=== PATIENT | female | born 1970 | race Caucasian/White ===

== ENCOUNTER 2016-10-12 10:26 | Emergency (ER) | payer MEDICARE ==
[2016-10-12] MEDS ORDERED: MORPHINE 4 MG/ML 1ML SYRINGE As Ordered ONE (10:50)
[2016-10-12] MEDS ORDERED: KETOROLAC 30 MG/ML VIAL (J1885) As Ordered ONE (10:50)
[2016-10-12] MEDS ORDERED: TRIMETHOBENZAMIDE HCL INJ 200 MG/2 ML VIAL (J3250) As Ordered ONE (10:53)
[2016-10-12 11:15] LABS: BASO % 0.3 % (0.0-1.0); EOS % 0.4 % (0.0-3.0); LARGE UNSTAINED CELL # 0.1 K/mm3 (0.0-0.4); LARGE UNSTAINED CELL % 0.4 % (0.0-4.0); LYMPH # 0.8 K/mm3 (1.5-4.5); LYMPH % 6.3 % (24.0-44.0); MEAN CORPUSCULAR HEMOGLOBIN 31.5 pg (27.0-33.0); MEAN CORPUSCULAR VOLUME 92.6 fl (80.0-96.0); MONO # 0.4 K/mm3 (0.0-0.8); MONO % 3.6 % (0.0-5.0); NEUTROPHILS # 10.9 K/mm3 (1.8-7.7); PLATELET COUNT, AUTOMATED 299 k/mm3 (150-450); RED CELL DISTRIBUTION WIDTH 12.8 % (11.5-14.5); WHITE BLOOD COUNT 12.3 K/mm3 (4.0-10.0)
[2016-10-12 11:26] LABS: ALBUMIN 3.6 GM/DL (3.2-5.2); ALBUMIN/GLOBULIN RATIO 0.86 (1.00-1.93); ALKALINE PHOSPHATASE 82 U/L (45-117); ALT/SGPT 15 U/L (12-78); ANION GAP 8 MEQ/L (8-16); AST/SGOT 10 U/L (15-37); BILIRUBIN,DIRECT 0.2 MG/DL (0.0-0.2); BILIRUBIN,TOTAL 0.9 MG/DL (0.2-1.0); BLOOD UREA NITROGEN 7 MG/DL (7-18); CALCIUM LEVEL 8.6 MG/DL (8.5-10.1); CARBON DIOXIDE LEVEL 26 MEQ/L (21-32); CHLORIDE LEVEL 104 MEQ/L (98-107); CREATININE FOR GFR 0.74 MG/DL (0.55-1.02); GLOMERULAR FILTRATION RATE > 60.0 (>58); GLUCOSE, FASTING 106 MG/DL (70-105); POTASSIUM SERUM 3.6 MEQ/L (3.5-5.1); SODIUM LEVEL 138 MEQ/L (136-145); TOTAL PROTEIN 7.8 GM/DL (6.4-8.2)
--- NOTE | 2016-10-12 11:37 | REP ---
CT abdomen pelvis without IV and oral contrast: There are no comparisons. There is no hydronephrosis or perinephric stranding on the right on the left. There are no renal, ureteral or bladder calculi on the right on the left. The visualized lung ocasio are unremarkable. The unenhanced hepatic parenchyma, gallbladder, pancreas and spleen are normal size and unremarkable. The adrenals are unremarkable. The abdominal aorta is unremarkable. There is no bowel distension. Mesentery is unremarkable. There is no ascites. Pelvis: The uterus and adnexa are unremarkable. There is no ascites or adenopathy. There is a phlebolith inferiorly on the left. There are occasional diverticula in the sigmoid colon, however there is no CT evidence of diverticulitis. Impression: There is no obstructive uropathy. There are occasional diverticula in the sigmoid colon without diverticulitis. There is no bowel distension or obstruction. There is no ascites. No adenopathy. Otherwise, negative CT of the abdomen and pelvis. Signed by Ahmet Calderon MD 10/12/2016 11:29 A
--- NOTE | 2016-10-12 11:54 | EDDOCDS ---
Physician Documentation [facility] Name: Alondra Hogan Age: 46 yrs Sex: Female : 1970 Arrival Date: 10/12/2016 Time: 10:26 Bed I5 / M5 Private MD: Giovanny Buitrago M. Disposition: 10/12/16 11:38 Discharged to Home/Self Care. Impression: Urinary tract infection, site not specified, Other abdominal pain - RIGHT FLANK PAIN, Nausea. - Condition is Stable. - Discharge Instructions: Nausea, Adult, Urinary Tract Infection. - Prescriptions for Tigan 300 mg Oral Capsule - take 1 capsule by ORAL route every 12 hours As needed; 20 capsule. Bactrim DS 800- 160 mg Oral Tablet - take 1 tablet by ORAL route every 12 hours for 7 days; 14 tablet. - Medication Reconciliation, Local Pharmacy Hours form. - Follow up: Emergency Department; When: As needed; Reason: Worsening of conditions. Follow up: Private Physician; When: 2 - 3 days; Reason: Wound/Symptom Recheck, Recheck today's complaints, Continuance of care. - Problem is new. - Symptoms have improved. Historical: - Allergies: Latex; - Home Meds: 1. citalopram 10 mg oral tab once daily 2. oxycodone-acetaminophen 7.5-325 mg Oral tab every 6 hours prn 3. clonidine HCl 0.2 mg Oral tab 1 tab once daily - PMHx: Bipolar disorder; Depression; - PSHx: ulnar nerve left arm; ; jaw surgery; - Social history: Smoking status: Patient uses tobacco products, current every day smoker. No barriers to communication noted, The patient speaks fluent Georgian, Speaks appropriately for age. - Family history: Not pertinent. - : The pt / caregiver states he / she is not on anticoagulants. Home medication list is obtained from the patient. - Exposure Risk Screening:: None identified. Vital Signs: 10/12 10:28 BP 111 / 74; Pulse 110; Resp 17; Temp 99.1(T); Pulse Ox 99% on R/A; Weight 61.23 kg / lr2 134.99 lbs (R); Height 5 ft. 0 in. (152.40 cm) (R); Pain 10/10; 11:49 BP 112 / 67 RA Sitting (auto/reg); Pulse 84; Resp 16; Temp 98.7(O); Pulse Ox 96% on jrd R/A; Pain 0/10; 10:28 Body Mass Index 26.37 (61.23 kg, 152.40 cm) lr2 MDM: 10:39 Financial registration complete. lg 10:43 [facility] Payment Agreement was scanned into [employer] and attached to record. lg 10:46 NS 0.9% 1000 ml IV at bolus once ordered. dt4 10:46 ketorolac 30 mg IVP once ordered. dt4 10:46 IV Saline Lock ordered. dt4 10:46 Undress patient appropriately for examination ordered. dt4 10:46 Tigan 200 mg IM once ordered. dt4 10:47 morphine 4 mg IVP once ordered. dt4 10:47 Basic Metabolic Profile Ordered. EDMS 10:47 CBC with Diff Ordered. EDMS 10:47 Liver Profile Ordered. EDMS 10:47 Urinalysis Ordered. EDMS 10:47 Urine Culture Ordered. EDMS 10:48 CT ABD & PELVIS: No Contrast Ordered. EDMS 10:48 NOTHING BY MOUTH+DIET ordered. EDMS Administered Medications: 11:01 Drug: NS 0.9% 1000 ml Route: IV; Rate: bolus; Site: right antecubital; jmk 11:03 Drug: Tigan 200 mg [Tigan 100 mg/mL intramuscular solution (2 mL)] Route: IM; Site: jo3 right gluteus; 11:03 Drug: morphine 4 mg [morphine 4 mg/mL intravenous cartridge (1 mL)] Route: IVP; Site: jo3 right antecubital; 11:04 Drug: ketorolac 30 mg [ketorolac 30 mg/mL (1 mL) injection solution (1 mL)] Route: IVP; jo3 Site: right antecubital; Signatures: Dispatcher [employer] EDMS Delio Rudolph RN RN jmk Michelson, Staci RN Rivas Boykin, Reg Reg lg Sharee Ponce PA-C PA-C dt4 Annmarie Menendez RN jo3 The chart was reviewed and I authenticate all verbal orders and agree with the evaluation and treatment provided.Attachments: 10:43 [facility] Payment Agreement lg MTDD
--- NOTE | 2016-10-12 11:54 | EDDOCDS ---
Nurse's Notes [facility] Name: Alondra Hogan Age: 46 yrs Sex: Female : 1970 Arrival Date: 10/12/2016 Time: 10:26 Bed I5 / M5 Private MD: Giovanny Buitrago M. Diagnosis: Urinary tract infection, site not specified;Other abdominal pain-RIGHT FLANK PAIN;Nausea Presentation: 10/12 10:29 Presenting complaint: Patient states: major pains on lower side back side for 2 days. srm nausea. no abnormal vaginal bleeding. inconsistency with urinating amount. Acute neurological deficits are not present. Mechanism of Injury: No Mechanism of Injury. Adult Sepsis Screening: The patient does not have new or worsening altered mentation. Patient's respiratory rate is less than 22. Systolic blood pressure is greater than 100. Patient has a qSOFA score of 0- Negative Sepsis Screen. Suicide/Homicide risk assessment- the patient denies having any suicidal and/or homicidal ideations and does not present with any other emotional, behavioral or mental health complaints. Status: Patient is not a technical service representative or dependent. Transition of care: patient was not received from another setting of care. 10:29 Method Of Arrival: Walkin/Carried/Asstd srm 10:29 Acuity: NEENA Level 3 srm Triage Assessment: 10:32 General: Appears uncomfortable. Pain: Pain currently is 10 out of 10 on a pain scale. srm Musculoskeletal: Reports right flnak pain. 10:32 Pt Declines HIV testing. srm Historical: - Allergies: Latex; - Home Meds: 1. citalopram 10 mg oral tab once daily 2. oxycodone-acetaminophen 7.5-325 mg Oral tab every 6 hours prn 3. clonidine HCl 0.2 mg Oral tab 1 tab once daily - PMHx: Bipolar disorder; Depression; - PSHx: ulnar nerve left arm; ; jaw surgery; - Social history: Smoking status: Patient uses tobacco products, current every day smoker. No barriers to communication noted, The patient speaks fluent Irish, Speaks appropriately for age. - Family history: Not pertinent. - : The pt / caregiver states he / she is not on anticoagulants. Home medication list is obtained from the patient. - Exposure Risk Screening:: None identified. Screenin:02 Screening information is obtained from the patient. Fall risk: No risks identified. jmk Assistance ADL's: requires no assistance with activities of daily living. Abuse/DV Screen: The patient / caregiver reports he/she is: not in a situation that causes fear, pain or injury. Nutritional screening: No deficits noted. Advance Directives: Currently, there is no health care proxy. There is no active DNR order. There is no living will. There is no Power of Director Mobile. Advance directive information has not previously been placed in an [facility] medical record. home support is adequate. Assessment: 11:02 General: Appears dramatic presentation. skin warm and dry / moist pink oral mucosa. jmk indicates flank discomfort that increases with movement . skin is unremarkable. Abd soft and non tender with palpation. Cardiovascular: Capillary refill < 3 seconds Clubbing of nail beds is absent Heart tones S1 S2 present. Respiratory: No deficits noted. Airway is patent Respiratory effort is even, unlabored, Respiratory pattern is regular, Breath sounds are clear bilaterally. GI: Abdomen is obese, Bowel sounds present X 4 quads. 11:36 Reassessment: Patient appears in no apparent distress at this time. Patient denies pain jo3 at this time. Patient states feeling better. Patient states symptoms have improved. awaiting results at this time. aware of plan of care . 11:51 General: Appears states pain resolved and no longer nauseated. [facility] Vital Signs: 10:28 BP 111 / 74; Pulse 110; Resp 17; Temp 99.1(T); Pulse Ox 99% on R/A; Weight 61.23 kg lr2 (R); Height 5 ft. 0 in. (152.40 cm) (R); Pain 10/10; 11:49 BP 112 / 67 RA Sitting (auto/reg); Pulse 84; Resp 16; Temp 98.7(O); Pulse Ox 96% on jrd R/A; Pain 0/10; 10:28 Body Mass Index 26.37 (61.23 kg, 152.40 cm) lr2 Vitals: 10:28 Log In Time: October 12, 2016 at 10:26. lr2 ED Course: 10:27 Patient visited by Nkechi Portillo. lr2 10:27 Giovanny Buitrago is Private Physician. lr2 10:27 Patient moved to Waiting lr2 10:27 Patient moved to Pre RCE lr2 10:30 Triage Initiated srm 10:32 Patient moved to Triage 3 srm 10:33 Bhaskar Grover PA is PHCP. btw 10:33 Damaris Phillips MD is Attending Physician. btw 10:33 PHCP role handed off by Bhaskar Grover PA dt4 10:33 Sharee Ponce PA-C is PHCP. dt4 10:33 Patient visited by Sharee Ponce PA-C. dt4 10:43 Patient moved to I4 / M4 srm 10:43 [facility] Payment Agreement was scanned into [employer] and attached to record. lg 10:46 Patient moved to I5 / M5 jrd 11:01 Basic Metabolic Profile Sent. jmk 11:01 CBC with Diff Sent. jmk 11:01 Liver Profile Sent. jmk 11:01 Urinalysis Sent. jmk 11:01 Urine Culture Sent. jmk 11:02 The patient / caregiver is instructed regarding the plan of care and ED course. jmk 11:02 Inserted saline lock: 20 gauge in right antecubital area. jmk 11:06 Patient visited by Delio Rudolph,RN. jmk 11:37 Patient visited by Annmarie Menendez,JACQUES. jo3 11:46 CT ABD & PELVIS: No Contrast Returned. EDMS 11:50 Patient visited by Jame Easley PCA. jrd 11:51 Discontinued lock intact, bleeding controlled, pressure dressing applied, No jmk redness/swelling at site. No procedures done that require assistance. Administered Medications: 11:01 Drug: NS 0.9% 1000 ml Route: IV; Rate: bolus; Site: right antecubital; jmk 11:03 Drug: Tigan 200 mg [Tigan 100 mg/mL intramuscular solution (2 mL)] Route: IM; Site: jo3 right gluteus; 11:03 Drug: morphine 4 mg [morphine 4 mg/mL intravenous cartridge (1 mL)] Route: IVP; Site: jo3 right antecubital; 11:04 Drug: ketorolac 30 mg [ketorolac 30 mg/mL (1 mL) injection solution (1 mL)] Route: IVP; jo3 Site: right antecubital; Order Results: Lab Order: Basic Metabolic Profile; SPEC'M 10/12/16 10:52 Test: GLUCOSE, FASTING; Value: 106; Range: 70-105; Abnormal: Above high normal; Units: MG/DL; Status: F Test: BLOOD UREA NITROGEN; Value: 7; Range: 7-18; Units: MG/DL; Status: F Test: CREATININE FOR GFR; Value: 0.74; Range: 0.55-1.02; Units: MG/DL; Status: F Test: GLOMERULAR FILTRATION RATE; Value: > 60.0; Range: >58; Status: F Test: SODIUM LEVEL; Value: 138; Range: 136-145; Units: MEQ/L; Status: F Test: POTASSIUM SERUM; Value: 3.6; Range: 3.5-5.1; Units: MEQ/L; Status: F Test: CHLORIDE LEVEL; Value: 104; Range: 98-107; Units: MEQ/L; Status: F Test: CARBON DIOXIDE LEVEL; Value: 26; Range: 21-32; Units: MEQ/L; Status: F Test: ANION GAP; Value: 8; Range: 8-16; Units: MEQ/L; Status: F Test: CALCIUM LEVEL; Value: 8.6; Range: 8.5-10.1; Units: MG/DL; Status: F Test Note: ; Units are mL/min/1.73 m2 Chronic Kidney Disease Staging per NKF: Stage I & II GFR >=60 Normal to Mildly Decreased Stage III GFR 30-59 Moderately Decreased Stage IV GFR 15-29 Severely Decreased Stage V GFR <15 Very Little GFR Left ESRD GFR <15 on [employer] OVERHAUL Lab Order: CBC with Diff; SPEC'M 10/12/16 10:52 Test: WHITE BLOOD COUNT; Value: 12.3; Range: 4.0-10.0; Abnormal: Above high normal; Units: K/mm3; Status: F Test: RED BLOOD COUNT; Value: 4.46; Range: 4.00-5.40; Units: M/mm3; Status: F Test: HEMOGLOBIN; Value: 14.1; Range: 12.0-16.0; Units: g/dl; Status: F Test: HEMATOCRIT; Value: 41.4; Range: 36.0-47.0; Units: %; Status: F Test: MEAN CORPUSCULAR VOLUME; Value: 92.6; Range: 80.0-96.0; Units: fl; Status: F Test: MEAN CORPUSCULAR HEMOGLOBIN; Value: 31.5; Range: 27.0-33.0; Units: pg; Status: F Test: MEAN CORPUSCULAR HGB CONC; Value: 34.0; Range: 32.0-36.5; Units: g/dl; Status: F Test: RED CELL DISTRIBUTION WIDTH; Value: 12.8; Range: 11.5-14.5; Units: %; Status: F Test: PLATELET COUNT, AUTOMATED; Value: 299; Range: 150-450; Units: k/mm3; Status: F Test: NEUTROPHILS %; Value: 89.0; Range: 36.0-66.0; Abnormal: Above high normal; Units: %; Status: F Test: LYMPH %; Value: 6.3; Range: 24.0-44.0; Abnormal: Below low normal; Units: %; Status: F Test: MONO %; Value: 3.6; Range: 0.0-5.0; Units: %; Status: F Test: EOS %; Value: 0.4; Range: 0.0-3.0; Units: %; Status: F Test: BASO %; Value: 0.3; Range: 0.0-1.0; Units: %; Status: F Test: LARGE UNSTAINED CELL %; Value: 0.4; Range: 0.0-4.0; Units: %; Status: F Test: NEUTROPHILS #; Value: 10.9; Range: 1.8-7.7; Abnormal: Above high normal; Units: K/mm3; Status: F Test: LYMPH #; Value: 0.8; Range: 1.5-4.5; Abnormal: Below low normal; Units: K/mm3; Status: F Test: MONO #; Value: 0.4; Range: 0.0-0.8; Units: K/mm3; Status: F Test: EOS #; Value: 0.0; Range: 0.0-0.50; Units: K/mm3; Status: F Test: BASO #; Value: 0.0; Range: 0.0-0.2; Units: K/mm3; Status: F Test: LARGE UNSTAINED CELL #; Value: 0.1; Range: 0.0-0.4; Units: K/mm3; Status: F Lab Order: Liver Profile; SPEC'M 10/12/16 10:52 Test: AST/SGOT; Value: 10; Range: 15-37; Abnormal: Below low normal; Units: U/L; Status: F Test: ALT/SGPT; Value: 15; Range: 12-78; Units: U/L; Status: F Test: ALKALINE PHOSPHATASE; Value: 82; Range: 45-117; Units: U/L; Status: F Test: BILIRUBIN,TOTAL; Value: 0.9; Range: 0.2-1.0; Units: MG/DL; Status: F Test: BILIRUBIN,DIRECT; Value: 0.2; Range: 0.0-0.2; Units: MG/DL; Status: F Test: TOTAL PROTEIN; Value: 7.8; Range: 6.4-8.2; Units: GM/DL; Status: F Test: ALBUMIN; Value: 3.6; Range: 3.2-5.2; Units: GM/DL; Status: F Test: ALBUMIN/GLOBULIN RATIO; Value: 0.86; Range: 1.00-1.93; Abnormal: Below low normal; Status: F Lab Order: Urinalysis; SPEC'M 10/12/16 10:52 Test: APPEARANCE, URINE; Value: CLOUDY; Range: CLEAR; Abnormal: Above high normal; Status: F Test: COLOR, URINE; Value: YELLOW; Range: YELLOW; Status: F Test: PH,URINE; Value: 6.0; Range: 5.0-9.0; Units: UNITS; Status: F Test: SPECIFIC GRAVITY URINE AUTO; Value: 1.011; Range: 1.002-1.035; Status: F Test: PROTEIN, URINE AUTO; Value: 1+; Range: NEGATIVE; Abnormal: Above high normal; Units: mg/dL; Status: F Test: GLUCOSE, URINE (UA) AUTO; Value: NEGATIVE; Range: NEGATIVE; Units: mg/dL; Status: F Test: KETONE, URINE AUTO; Value: NEGATIVE; Range: NEGATIVE; Units: mg/dL; Status: F Test: UROBILINOGEN, URINE AUTO; Value: 4.0; Range: 0.0-2.0; Abnormal: Above high normal; Units: mg/dL; Status: F Test: BILIRUBIN, URINE AUTO; Value: NEGATIVE; Range: NEGATIVE; Status: F Test: NITRITE, URINE AUTO; Value: POSITIVE; Range: NEGATIVE; Status: F Test: LEUKOCYTE ESTERASE, URINE AUTO; Value: 3+; Range: NEGATIVE; Abnormal: Above high normal; Status: F Test: BLOOD, URINE BLOOD; Value: 2+; Range: NEGATIVE; Abnormal: Above high normal; Status: F Test: WBC, URINE AUTO; Value: TNTC; Range: 0-3; Abnormal: Above high normal; Units: /HPF; Status: F Test: RBC, URINE AUTO; Value: 19; Range: 0-3; Abnormal: Above high normal; Units: /HPF; Status: F Test: BACTERIA, URINE AUTO; Value: 1+; Range: NEGATIVE; Abnormal: Above high normal; Status: F Test: SQUAMOUS EPITHELIAL CELL UR AU; Value: 2; Range: 0-6; Units: /HPF; Status: F Test: MUCUS, URINE; Value: SMALL; Range: NEGATIVE; Status: F Test: HYALINE CAST, URINE AUTO; Value: 0; Range: 0-1; Units: /LPF; Status: F Radiology Order: CT ABD & PELVIS: No Contrast Test: CT ABD & PELVIS: No Contrast REASON FOR EXAMINATION: RIGHT FLANK PAIN; CT abdomen pelvis without IV and oral contrast:; ; There are no comparisons.; ; There is no hydronephrosis or perinephric stranding on the right on the left.; There are no renal, ureteral or bladder calculi on the right on the left.; ; The visualized lung ocasio are unremarkable.; ; The unenhanced hepatic parenchyma, gallbladder, pancreas and spleen are normal; size and unremarkable. The adrenals are unremarkable.; ; The abdominal aorta is unremarkable.; ; There is no bowel distension. Mesentery is unremarkable. There is no ascites.; ; Pelvis:; ; The uterus and adnexa are unremarkable. There is no ascites or adenopathy.; There is a phlebolith inferiorly on the left.; ; There are occasional diverticula in the sigmoid colon, however there is no CT; evidence of diverticulitis.; ; Impression:; ; There is no obstructive uropathy. There are occasional diverticula in the; sigmoid colon without diverticulitis. There is no bowel distension or; obstruction. There is no ascites. No adenopathy. Otherwise, negative CT of the; abdomen and pelvis.; ; ; Signed by; Ahmet Calderon MD 10/12/2016 11:29 A; Outcome: 11:38 Discharge ordered by Provider. dt4 11:51 Discharge Assessment: Patient awake, alert and oriented x 3. No cognitive and/or jmk functional deficits noted. Patient verbalized understanding of disposition instructions. patient administered narcotics - no. The following High Risk Discharge criteria are identified: None. Discharged to home ambulatory. Condition: good. Discharge instructions given to patient, Instructed on discharge instructions, follow up and referral plans. medication usage, Demonstrated understanding of instructions, medications, Pt was receptive of discharge instructions/ teaching. Prescriptions given X 2. CT Study completed. Property :Personal belongings accompany Pt. 11:53 Patient left the ED. shabana Signatures: Dispatcher [employer] EDMS Delio Rudolph,RN Demetra Lozano RN Rivas Boykin, Annmarie Paul lg, RN RN jo3 Wolfenden, Brandon, PA PA btw Tschudi, Diane, PA-C PAVincenzo dt4 Jame Easley, BILLY RELAY REPAIRER Nkechi Da Silva2 LYNDA
--- NOTE | 2016-10-14 12:54 | EDDOCDS ---
Nurse's Notes [facility] Name: Alondra Hogan Age: 46 yrs Sex: Female : 1970 Arrival Date: 10/12/2016 Time: 10:26 Bed I5 / M5 Private MD: Giovanny Buitrago M. Diagnosis: Urinary tract infection, site not specified;Other abdominal pain-RIGHT FLANK PAIN;Nausea Presentation: 10/12 10:29 Presenting complaint: Patient states: major pains on lower side back side for 2 days. srm nausea. no abnormal vaginal bleeding. inconsistency with urinating amount. Acute neurological deficits are not present. Mechanism of Injury: No Mechanism of Injury. Adult Sepsis Screening: The patient does not have new or worsening altered mentation. Patient's respiratory rate is less than 22. Systolic blood pressure is greater than 100. Patient has a qSOFA score of 0- Negative Sepsis Screen. Suicide/Homicide risk assessment- the patient denies having any suicidal and/or homicidal ideations and does not present with any other emotional, behavioral or mental health complaints. Status: Patient is not a janitorial services supervisor or dependent. Transition of care: patient was not received from another setting of care. 10:29 Method Of Arrival: Walkin/Carried/Asstd srm 10:29 Acuity: NEENA Level 3 srm Triage Assessment: 10:32 General: Appears uncomfortable. Pain: Pain currently is 10 out of 10 on a pain scale. srm Musculoskeletal: Reports right flnak pain. 10:32 Pt Declines HIV testing. srm Historical: - Allergies: Latex; - Home Meds: 1. citalopram 10 mg oral tab once daily 2. oxycodone-acetaminophen 7.5-325 mg Oral tab every 6 hours prn 3. clonidine HCl 0.2 mg Oral tab 1 tab once daily - PMHx: Bipolar disorder; Depression; - PSHx: ulnar nerve left arm; ; jaw surgery; - Social history: Smoking status: Patient uses tobacco products, current every day smoker. No barriers to communication noted, The patient speaks fluent Mongolian, Speaks appropriately for age. - Family history: Not pertinent. - : The pt / caregiver states he / she is not on anticoagulants. Home medication list is obtained from the patient. - Exposure Risk Screening:: None identified. Screenin:02 Screening information is obtained from the patient. Fall risk: No risks identified. jmk Assistance ADL's: requires no assistance with activities of daily living. Abuse/DV Screen: The patient / caregiver reports he/she is: not in a situation that causes fear, pain or injury. Nutritional screening: No deficits noted. Advance Directives: Currently, there is no health care proxy. There is no active DNR order. There is no living will. There is no Power of Bone Cooking Operator. Advance directive information has not previously been placed in an [facility] medical record. home support is adequate. Assessment: 11:02 General: Appears dramatic presentation. skin warm and dry / moist pink oral mucosa. jmk indicates flank discomfort that increases with movement . skin is unremarkable. Abd soft and non tender with palpation. Cardiovascular: Capillary refill < 3 seconds Clubbing of nail beds is absent Heart tones S1 S2 present. Respiratory: No deficits noted. Airway is patent Respiratory effort is even, unlabored, Respiratory pattern is regular, Breath sounds are clear bilaterally. GI: Abdomen is obese, Bowel sounds present X 4 quads. 11:36 Reassessment: Patient appears in no apparent distress at this time. Patient denies pain jo3 at this time. Patient states feeling better. Patient states symptoms have improved. awaiting results at this time. aware of plan of care . 11:51 General: Appears states pain resolved and no longer nauseated. [facility] Vital Signs: 10:28 BP 111 / 74; Pulse 110; Resp 17; Temp 99.1(T); Pulse Ox 99% on R/A; Weight 61.23 kg lr2 (R); Height 5 ft. 0 in. (152.40 cm) (R); Pain 10/10; 11:49 BP 112 / 67 RA Sitting (auto/reg); Pulse 84; Resp 16; Temp 98.7(O); Pulse Ox 96% on jrd R/A; Pain 0/10; 10:28 Body Mass Index 26.37 (61.23 kg, 152.40 cm) lr2 Vitals: 10:28 Log In Time: October 12, 2016 at 10:26. lr2 ED Course: 10:27 Patient visited by Nkechi Portillo. lr2 10:27 Giovanny Buitrago is Private Physician. lr2 10:27 Patient moved to Waiting lr2 10:27 Patient moved to Pre RCE lr2 10:30 Triage Initiated srm 10:32 Patient moved to Triage 3 srm 10:33 Bhaskar Grover PA is PHCP. btw 10:33 Damaris Phillips MD is Attending Physician. btw 10:33 PHCP role handed off by Bhaskar Grover PA dt4 10:33 Sharee Ponce PA-C is PHCP. dt4 10:33 Patient visited by Sharee Ponce PA-C. dt4 10:43 Patient moved to I4 / M4 srm 10:43 [facility] Payment Agreement was scanned into Widespace and attached to record. lg 10:46 Patient moved to I5 / M5 jrd 11:01 Basic Metabolic Profile Sent. jmk 11:01 CBC with Diff Sent. jmk 11:01 Liver Profile Sent. jmk 11:01 Urinalysis Sent. jmk 11:01 Urine Culture Sent. jmk 11:02 The patient / caregiver is instructed regarding the plan of care and ED course. jmk 11:02 Inserted saline lock: 20 gauge in right antecubital area. jmk 11:06 Patient visited by Delio Rudolph,RN. jmk 11:37 Patient visited by Annmarie Menendez,JACQUES. jo3 11:46 CT ABD & PELVIS: No Contrast Returned. EDMS 11:50 Patient visited by Jame Easley PCA. jrd 11:51 Discontinued lock intact, bleeding controlled, pressure dressing applied, No jmk redness/swelling at site. No procedures done that require assistance. 15:26 T-Sheet-- Draft Copy was scanned into Widespace and attached to record. gb 15:26 Radiology Report was scanned into Widespace and attached to record. gb Administered Medications: 11:01 Drug: NS 0.9% 1000 ml Route: IV; Rate: bolus; Site: right antecubital; jmk 11:03 Drug: Tigan 200 mg [Tigan 100 mg/mL intramuscular solution (2 mL)] Route: IM; Site: jo3 right gluteus; 11:03 Drug: morphine 4 mg [morphine 4 mg/mL intravenous cartridge (1 mL)] Route: IVP; Site: jo3 right antecubital; 11:04 Drug: ketorolac 30 mg [ketorolac 30 mg/mL (1 mL) injection solution (1 mL)] Route: IVP; jo3 Site: right antecubital; Order Results: Lab Order: Basic Metabolic Profile; SPEC'M 10/12/16 10:52 Test: GLUCOSE, FASTING; Value: 106; Range: 70-105; Abnormal: Above high normal; Units: MG/DL; Status: F Test: BLOOD UREA NITROGEN; Value: 7; Range: 7-18; Units: MG/DL; Status: F Test: CREATININE FOR GFR; Value: 0.74; Range: 0.55-1.02; Units: MG/DL; Status: F Test: GLOMERULAR FILTRATION RATE; Value: > 60.0; Range: >58; Status: F Test: SODIUM LEVEL; Value: 138; Range: 136-145; Units: MEQ/L; Status: F Test: POTASSIUM SERUM; Value: 3.6; Range: 3.5-5.1; Units: MEQ/L; Status: F Test: CHLORIDE LEVEL; Value: 104; Range: 98-107; Units: MEQ/L; Status: F Test: CARBON DIOXIDE LEVEL; Value: 26; Range: 21-32; Units: MEQ/L; Status: F Test: ANION GAP; Value: 8; Range: 8-16; Units: MEQ/L; Status: F Test: CALCIUM LEVEL; Value: 8.6; Range: 8.5-10.1; Units: MG/DL; Status: F Test Note: ; Units are mL/min/1.73 m2 Chronic Kidney Disease Staging per NKF: Stage I & II GFR >=60 Normal to Mildly Decreased Stage III GFR 30-59 Moderately Decreased Stage IV GFR 15-29 Severely Decreased Stage V GFR <15 Very Little GFR Left ESRD GFR <15 on COACH DRIVER Lab Order: CBC with Diff; SPEC'M 10/12/16 10:52 Test: WHITE BLOOD COUNT; Value: 12.3; Range: 4.0-10.0; Abnormal: Above high normal; Units: K/mm3; Status: F Test: RED BLOOD COUNT; Value: 4.46; Range: 4.00-5.40; Units: M/mm3; Status: F Test: HEMOGLOBIN; Value: 14.1; Range: 12.0-16.0; Units: g/dl; Status: F Test: HEMATOCRIT; Value: 41.4; Range: 36.0-47.0; Units: %; Status: F Test: MEAN CORPUSCULAR VOLUME; Value: 92.6; Range: 80.0-96.0; Units: fl; Status: F Test: MEAN CORPUSCULAR HEMOGLOBIN; Value: 31.5; Range: 27.0-33.0; Units: pg; Status: F Test: MEAN CORPUSCULAR HGB CONC; Value: 34.0; Range: 32.0-36.5; Units: g/dl; Status: F Test: RED CELL DISTRIBUTION WIDTH; Value: 12.8; Range: 11.5-14.5; Units: %; Status: F Test: PLATELET COUNT, AUTOMATED; Value: 299; Range: 150-450; Units: k/mm3; Status: F Test: NEUTROPHILS %; Value: 89.0; Range: 36.0-66.0; Abnormal: Above high normal; Units: %; Status: F Test: LYMPH %; Value: 6.3; Range: 24.0-44.0; Abnormal: Below low normal; Units: %; Status: F Test: MONO %; Value: 3.6; Range: 0.0-5.0; Units: %; Status: F Test: EOS %; Value: 0.4; Range: 0.0-3.0; Units: %; Status: F Test: BASO %; Value: 0.3; Range: 0.0-1.0; Units: %; Status: F Test: LARGE UNSTAINED CELL %; Value: 0.4; Range: 0.0-4.0; Units: %; Status: F Test: NEUTROPHILS #; Value: 10.9; Range: 1.8-7.7; Abnormal: Above high normal; Units: K/mm3; Status: F Test: LYMPH #; Value: 0.8; Range: 1.5-4.5; Abnormal: Below low normal; Units: K/mm3; Status: F Test: MONO #; Value: 0.4; Range: 0.0-0.8; Units: K/mm3; Status: F Test: EOS #; Value: 0.0; Range: 0.0-0.50; Units: K/mm3; Status: F Test: BASO #; Value: 0.0; Range: 0.0-0.2; Units: K/mm3; Status: F Test: LARGE UNSTAINED CELL #; Value: 0.1; Range: 0.0-0.4; Units: K/mm3; Status: F Lab Order: Liver Profile; SPEC'M 10/12/16 10:52 Test: AST/SGOT; Value: 10; Range: 15-37; Abnormal: Below low normal; Units: U/L; Status: F Test: ALT/SGPT; Value: 15; Range: 12-78; Units: U/L; Status: F Test: ALKALINE PHOSPHATASE; Value: 82; Range: 45-117; Units: U/L; Status: F Test: BILIRUBIN,TOTAL; Value: 0.9; Range: 0.2-1.0; Units: MG/DL; Status: F Test: BILIRUBIN,DIRECT; Value: 0.2; Range: 0.0-0.2; Units: MG/DL; Status: F Test: TOTAL PROTEIN; Value: 7.8; Range: 6.4-8.2; Units: GM/DL; Status: F Test: ALBUMIN; Value: 3.6; Range: 3.2-5.2; Units: GM/DL; Status: F Test: ALBUMIN/GLOBULIN RATIO; Value: 0.86; Range: 1.00-1.93; Abnormal: Below low normal; Status: F Lab Order: Urinalysis; SPEC'M 10/12/16 10:52 Test: APPEARANCE, URINE; Value: CLOUDY; Range: CLEAR; Abnormal: Above high normal; Status: F Test: COLOR, URINE; Value: YELLOW; Range: YELLOW; Status: F Test: PH,URINE; Value: 6.0; Range: 5.0-9.0; Units: UNITS; Status: F Test: SPECIFIC GRAVITY URINE AUTO; Value: 1.011; Range: 1.002-1.035; Status: F Test: PROTEIN, URINE AUTO; Value: 1+; Range: NEGATIVE; Abnormal: Above high normal; Units: mg/dL; Status: F Test: GLUCOSE, URINE (UA) AUTO; Value: NEGATIVE; Range: NEGATIVE; Units: mg/dL; Status: F Test: KETONE, URINE AUTO; Value: NEGATIVE; Range: NEGATIVE; Units: mg/dL; Status: F Test: UROBILINOGEN, URINE AUTO; Value: 4.0; Range: 0.0-2.0; Abnormal: Above high normal; Units: mg/dL; Status: F Test: BILIRUBIN, URINE AUTO; Value: NEGATIVE; Range: NEGATIVE; Status: F Test: NITRITE, URINE AUTO; Value: POSITIVE; Range: NEGATIVE; Status: F Test: LEUKOCYTE ESTERASE, URINE AUTO; Value: 3+; Range: NEGATIVE; Abnormal: Above high normal; Status: F Test: BLOOD, URINE BLOOD; Value: 2+; Range: NEGATIVE; Abnormal: Above high normal; Status: F Test: WBC, URINE AUTO; Value: TNTC; Range: 0-3; Abnormal: Above high normal; Units: /HPF; Status: F Test: RBC, URINE AUTO; Value: 19; Range: 0-3; Abnormal: Above high normal; Units: /HPF; Status: F Test: BACTERIA, URINE AUTO; Value: 1+; Range: NEGATIVE; Abnormal: Above high normal; Status: F Test: SQUAMOUS EPITHELIAL CELL UR AU; Value: 2; Range: 0-6; Units: /HPF; Status: F Test: MUCUS, URINE; Value: SMALL; Range: NEGATIVE; Status: F Test: HYALINE CAST, URINE AUTO; Value: 0; Range: 0-1; Units: /LPF; Status: F Lab Order: Urine Culture; SPEC'M 10/12/16 10:52 Test: URINE CULTURE; Value: <EXTERNAL COMMENT eCWMed> FULL REPORT IN LAB NOTES (eCW and Medent).; Status: F Test: URINE CULTURE; Value: ORGANISM 1: ESCHERICHIA COLI; Status: F Test: URINE CULTURE; Value: ESCHERICHIA COLI; Status: F Test: URINE CULTURE; Value: COLONY COUNT CFU/ml >100,000; Status: F Test: URINE CULTURE; Value: GRAM NEG SENSI - VITEK 80; Status: F Test: URINE CULTURE; Value: Method: VIT2; Status: F Test: URINE CULTURE; Value: EXTD BRD SPCTRM BETA LACTAMASE -; Status: F Test: URINE CULTURE; Value: TRIMETHOPRIM/SULFAMETHOXAZOLE <=20 S; Status: F Test: URINE CULTURE; Value: AMPICILLIN 4 S; Status: F Test: URINE CULTURE; Value: GENTAMICIN <=1 S; Status: F Test: URINE CULTURE; Value: NITROFURANTOIN <=16 S; Status: F Test: URINE CULTURE; Value: CEFAZOLIN <=4 S; Status: F Test: URINE CULTURE; Value: LEVOFLOXACIN <=0.12 S; Status: F Test: URINE CULTURE; Value: TOBRAMYCIN <=1 S; Status: F Test: URINE CULTURE; Value: CEFTRIAXONE <=1 S; Status: F Test: URINE CULTURE; Value: CEFTAZIDIME <=1 S; Status: F Test: URINE CULTURE; Value: AMPICILLIN/SULBACTAM 4 S; Status: F Test: URINE CULTURE; Value: PIPERACILLIN/TAZOBACTAM <=4 S; Status: F Test: URINE CULTURE; Value: AZTREONAM <=1 S; Status: F Test: URINE CULTURE; Value: ERTAPENEM <=0.5 S; Status: F Test: URINE CULTURE; Value: MEROPENEM <=0.25 S; Status: F Test: URINE CULTURE; Value: TIGECYCLINE <=0.5 S; Status: F Test: URINE CULTURE; Value: CEFEPIME <=1 S; Status: F Radiology Order: CT ABD & PELVIS: No Contrast Test: CT ABD & PELVIS: No Contrast REASON FOR EXAMINATION: RIGHT FLANK PAIN; CT abdomen pelvis without IV and oral contrast:; ; There are no comparisons.; ; There is no hydronephrosis or perinephric stranding on the right on the left.; There are no renal, ureteral or bladder calculi on the right on the left.; ; The visualized lung ocasio are unremarkable.; ; The unenhanced hepatic parenchyma, gallbladder, pancreas and spleen are normal; size and unremarkable. The adrenals are unremarkable.; ; The abdominal aorta is unremarkable.; ; There is no bowel distension. Mesentery is unremarkable. There is no ascites.; ; Pelvis:; ; The uterus and adnexa are unremarkable. There is no ascites or adenopathy.; There is a phlebolith inferiorly on the left.; ; There are occasional diverticula in the sigmoid colon, however there is no CT; evidence of diverticulitis.; ; Impression:; ; There is no obstructive uropathy. There are occasional diverticula in the; sigmoid colon without diverticulitis. There is no bowel distension or; obstruction. There is no ascites. No adenopathy. Otherwise, negative CT of the; abdomen and pelvis.; ; ; Signed by; Ahmet Calderon MD 10/12/2016 11:29 A; Outcome: 11:38 Discharge ordered by Provider. dt4 11:51 Discharge Assessment: Patient awake, alert and oriented x 3. No cognitive and/or jmk functional deficits noted. Patient verbalized understanding of disposition instructions. patient administered narcotics - no. The following High Risk Discharge criteria are identified: None. Discharged to home ambulatory. Condition: good. Discharge instructions given to patient, Instructed on discharge instructions, follow up and referral plans. medication usage, Demonstrated understanding of instructions, medications, Pt was receptive of discharge instructions/ teaching. Prescriptions given X 2. CT Study completed. Property :Personal belongings accompany Pt. 11:53 Patient left the ED. sahbana Signatures: Dispatcher MedHost EDMS Delio Rudolph,RN Demetra Lozano, JACQUES RN Angeles Altman, Reg Reg gb Rivas Werner, Reg Reg lg Annmarie MenendezRN RN Bhaskar Dubose PA PA btw Tschudi, Diane, PA-C PA-C dt4 Jame Easley, BILLY MANAGER BENCH Nkechi Da Silva2 Chart Complete LYNDA
--- NOTE | 2016-10-14 12:54 | EDDOCDS ---
Physician Documentation [facility] Name: Alondra Hogan Age: 46 yrs Sex: Female : 1970 Arrival Date: 10/12/2016 Time: 10:26 Bed I5 / M5 Private MD: Giovanny Buitrago M. Disposition: 10/12/16 11:38 Discharged to Home/Self Care. Impression: Urinary tract infection, site not specified, Other abdominal pain - RIGHT FLANK PAIN, Nausea. - Condition is Stable. - Discharge Instructions: Nausea, Adult, Urinary Tract Infection. - Prescriptions for Tigan 300 mg Oral Capsule - take 1 capsule by ORAL route every 12 hours As needed; 20 capsule. Bactrim DS 800- 160 mg Oral Tablet - take 1 tablet by ORAL route every 12 hours for 7 days; 14 tablet. - Medication Reconciliation, Local Pharmacy Hours form. - Follow up: Emergency Department; When: As needed; Reason: Worsening of conditions. Follow up: Private Physician; When: 2 - 3 days; Reason: Wound/Symptom Recheck, Recheck today's complaints, Continuance of care. - Problem is new. - Symptoms have improved. Historical: - Allergies: Latex; - Home Meds: 1. citalopram 10 mg oral tab once daily 2. oxycodone-acetaminophen 7.5-325 mg Oral tab every 6 hours prn 3. clonidine HCl 0.2 mg Oral tab 1 tab once daily - PMHx: Bipolar disorder; Depression; - PSHx: ulnar nerve left arm; ; jaw surgery; - Social history: Smoking status: Patient uses tobacco products, current every day smoker. No barriers to communication noted, The patient speaks fluent French, Speaks appropriately for age. - Family history: Not pertinent. - : The pt / caregiver states he / she is not on anticoagulants. Home medication list is obtained from the patient. - Exposure Risk Screening:: None identified. Vital Signs: 10/12 10:28 BP 111 / 74; Pulse 110; Resp 17; Temp 99.1(T); Pulse Ox 99% on R/A; Weight 61.23 kg / lr2 134.99 lbs (R); Height 5 ft. 0 in. (152.40 cm) (R); Pain 10/10; 11:49 BP 112 / 67 RA Sitting (auto/reg); Pulse 84; Resp 16; Temp 98.7(O); Pulse Ox 96% on jrd R/A; Pain 0/10; 10:28 Body Mass Index 26.37 (61.23 kg, 152.40 cm) lr2 MDM: 10:39 Financial registration complete. lg 10:43 [facility] Payment Agreement was scanned into BalaBit and attached to record. lg 10:46 NS 0.9% 1000 ml IV at bolus once ordered. dt4 10:46 ketorolac 30 mg IVP once ordered. dt4 10:46 IV Saline Lock ordered. dt4 10:46 Undress patient appropriately for examination ordered. dt4 10:46 Tigan 200 mg IM once ordered. dt4 10:47 morphine 4 mg IVP once ordered. dt4 10:47 Basic Metabolic Profile Ordered. EDMS 10:47 CBC with Diff Ordered. EDMS 10:47 Liver Profile Ordered. EDMS 10:47 Urinalysis Ordered. EDMS 10:47 Urine Culture Ordered. EDMS 10:48 CT ABD & PELVIS: No Contrast Ordered. EDMS 10:48 NOTHING BY MOUTH+DIET ordered. EDMS 15:26 T-Sheet-- Draft Copy was scanned into BalaBit and attached to record. gb 15:26 Radiology Report was scanned into BalaBit and attached to record. gb Administered Medications: 11:01 Drug: NS 0.9% 1000 ml Route: IV; Rate: bolus; Site: right antecubital; jmk 11:03 Drug: Tigan 200 mg [Tigan 100 mg/mL intramuscular solution (2 mL)] Route: IM; Site: jo3 right gluteus; 11:03 Drug: morphine 4 mg [morphine 4 mg/mL intravenous cartridge (1 mL)] Route: IVP; Site: jo3 right antecubital; 11:04 Drug: ketorolac 30 mg [ketorolac 30 mg/mL (1 mL) injection solution (1 mL)] Route: IVP; jo3 Site: right antecubital; Signatures: Dispatcher MedHost EDMS Delio Rudolph,RN Demetra Lozano RN RN [facility] Angeles Macias, Reg Reg gb Rivas Werner, Reg Reg lg Sharee Ponce, KERRY PAVincenzo dt4 Annmarie Menendez RN jo3 The chart was reviewed and I authenticate all verbal orders and agree with the evaluation and treatment provided.Attachments: 10:43 [facility] Payment Agreement lg 15:26 T-Sheet-- Draft Copy gb Chart Complete MTDD
--- NOTE | 2016-10-14 12:54 | EDDOCDS ---
Physician Documentation [facility] Name: Alondra Hogan Age: 46 yrs Sex: Female : 1970 Arrival Date: 10/12/2016 Time: 10:26 Bed I5 / M5 Private MD: Giovanny Buitrago M. Disposition: 10/12/16 11:38 Discharged to Home/Self Care. Impression: Urinary tract infection, site not specified, Other abdominal pain - RIGHT FLANK PAIN, Nausea. - Condition is Stable. - Discharge Instructions: Nausea, Adult, Urinary Tract Infection. - Prescriptions for Tigan 300 mg Oral Capsule - take 1 capsule by ORAL route every 12 hours As needed; 20 capsule. Bactrim DS 800- 160 mg Oral Tablet - take 1 tablet by ORAL route every 12 hours for 7 days; 14 tablet. - Medication Reconciliation, Local Pharmacy Hours form. - Follow up: Emergency Department; When: As needed; Reason: Worsening of conditions. Follow up: Private Physician; When: 2 - 3 days; Reason: Wound/Symptom Recheck, Recheck today's complaints, Continuance of care. - Problem is new. - Symptoms have improved. Historical: - Allergies: Latex; - Home Meds: 1. citalopram 10 mg oral tab once daily 2. oxycodone-acetaminophen 7.5-325 mg Oral tab every 6 hours prn 3. clonidine HCl 0.2 mg Oral tab 1 tab once daily - PMHx: Bipolar disorder; Depression; - PSHx: ulnar nerve left arm; ; jaw surgery; - Social history: Smoking status: Patient uses tobacco products, current every day smoker. No barriers to communication noted, The patient speaks fluent Luxembourgish, Speaks appropriately for age. - Family history: Not pertinent. - : The pt / caregiver states he / she is not on anticoagulants. Home medication list is obtained from the patient. - Exposure Risk Screening:: None identified. Vital Signs: 10/12 10:28 BP 111 / 74; Pulse 110; Resp 17; Temp 99.1(T); Pulse Ox 99% on R/A; Weight 61.23 kg / lr2 134.99 lbs (R); Height 5 ft. 0 in. (152.40 cm) (R); Pain 10/10; 11:49 BP 112 / 67 RA Sitting (auto/reg); Pulse 84; Resp 16; Temp 98.7(O); Pulse Ox 96% on jrd R/A; Pain 0/10; 10:28 Body Mass Index 26.37 (61.23 kg, 152.40 cm) lr2 MDM: 10:39 Financial registration complete. lg 10:43 [facility] Payment Agreement was scanned into Lvmae and attached to record. lg 10:46 NS 0.9% 1000 ml IV at bolus once ordered. dt4 10:46 ketorolac 30 mg IVP once ordered. dt4 10:46 IV Saline Lock ordered. dt4 10:46 Undress patient appropriately for examination ordered. dt4 10:46 Tigan 200 mg IM once ordered. dt4 10:47 morphine 4 mg IVP once ordered. dt4 10:47 Basic Metabolic Profile Ordered. EDMS 10:47 CBC with Diff Ordered. EDMS 10:47 Liver Profile Ordered. EDMS 10:47 Urinalysis Ordered. EDMS 10:47 Urine Culture Ordered. EDMS 10:48 CT ABD & PELVIS: No Contrast Ordered. EDMS 10:48 NOTHING BY MOUTH+DIET ordered. EDMS 15:26 T-Sheet-- Draft Copy was scanned into Lvmae and attached to record. gb 15:26 Radiology Report was scanned into Lvmae and attached to record. gb Administered Medications: 11:01 Drug: NS 0.9% 1000 ml Route: IV; Rate: bolus; Site: right antecubital; jmk 11:03 Drug: Tigan 200 mg [Tigan 100 mg/mL intramuscular solution (2 mL)] Route: IM; Site: jo3 right gluteus; 11:03 Drug: morphine 4 mg [morphine 4 mg/mL intravenous cartridge (1 mL)] Route: IVP; Site: jo3 right antecubital; 11:04 Drug: ketorolac 30 mg [ketorolac 30 mg/mL (1 mL) injection solution (1 mL)] Route: IVP; jo3 Site: right antecubital; Signatures: Dispatcher MedHost EDMS Delio Rudolph,RN Demetra Lozano RN RN [facility] Angeles Macias, Reg Reg gb Rivas Werner, Reg Reg lg Sharee Ponce, KERRY PAVincenzo dt4 Annmarie Menendez RN jo3 The chart was reviewed and I authenticate all verbal orders and agree with the evaluation and treatment provided.Attachments: 10:43 [facility] Payment Agreement lg 15:26 T-Sheet-- Draft Copy gb Chart Complete MTDD
--- NOTE | 2016-10-14 17:36 | EDDOCDS ---
Nurse's Notes [facility] Name: Alondra Hogan Age: 46 yrs Sex: Female : 1970 Arrival Date: 10/12/2016 Time: 10:26 Bed I5 / M5 Private MD: Giovanny Buitrago M. Diagnosis: Urinary tract infection, site not specified;Other abdominal pain-RIGHT FLANK PAIN;Nausea Presentation: 10/12 10:29 Presenting complaint: Patient states: major pains on lower side back side for 2 days. srm nausea. no abnormal vaginal bleeding. inconsistency with urinating amount. Acute neurological deficits are not present. Mechanism of Injury: No Mechanism of Injury. Adult Sepsis Screening: The patient does not have new or worsening altered mentation. Patient's respiratory rate is less than 22. Systolic blood pressure is greater than 100. Patient has a qSOFA score of 0- Negative Sepsis Screen. Suicide/Homicide risk assessment- the patient denies having any suicidal and/or homicidal ideations and does not present with any other emotional, behavioral or mental health complaints. Status: Patient is not a sales and service change leader or dependent. Transition of care: patient was not received from another setting of care. 10:29 Method Of Arrival: Walkin/Carried/Asstd srm 10:29 Acuity: NEENA Level 3 srm Triage Assessment: 10:32 General: Appears uncomfortable. Pain: Pain currently is 10 out of 10 on a pain scale. srm Musculoskeletal: Reports right flnak pain. 10:32 Pt Declines HIV testing. srm Historical: - Allergies: Latex; - Home Meds: 1. citalopram 10 mg oral tab once daily 2. oxycodone-acetaminophen 7.5-325 mg Oral tab every 6 hours prn 3. clonidine HCl 0.2 mg Oral tab 1 tab once daily - PMHx: Bipolar disorder; Depression; - PSHx: ulnar nerve left arm; ; jaw surgery; - Social history: Smoking status: Patient uses tobacco products, current every day smoker. No barriers to communication noted, The patient speaks fluent Danish, Speaks appropriately for age. - Family history: Not pertinent. - : The pt / caregiver states he / she is not on anticoagulants. Home medication list is obtained from the patient. - Exposure Risk Screening:: None identified. Screenin:02 Screening information is obtained from the patient. Fall risk: No risks identified. jmk Assistance ADL's: requires no assistance with activities of daily living. Abuse/DV Screen: The patient / caregiver reports he/she is: not in a situation that causes fear, pain or injury. Nutritional screening: No deficits noted. Advance Directives: Currently, there is no health care proxy. There is no active DNR order. There is no living will. There is no Power of Test Automation Architect. Advance directive information has not previously been placed in an [facility] medical record. home support is adequate. Assessment: 11:02 General: Appears dramatic presentation. skin warm and dry / moist pink oral mucosa. jmk indicates flank discomfort that increases with movement . skin is unremarkable. Abd soft and non tender with palpation. Cardiovascular: Capillary refill < 3 seconds Clubbing of nail beds is absent Heart tones S1 S2 present. Respiratory: No deficits noted. Airway is patent Respiratory effort is even, unlabored, Respiratory pattern is regular, Breath sounds are clear bilaterally. GI: Abdomen is obese, Bowel sounds present X 4 quads. 11:36 Reassessment: Patient appears in no apparent distress at this time. Patient denies pain jo3 at this time. Patient states feeling better. Patient states symptoms have improved. awaiting results at this time. aware of plan of care . 11:51 General: Appears states pain resolved and no longer nauseated. [facility] Vital Signs: 10:28 BP 111 / 74; Pulse 110; Resp 17; Temp 99.1(T); Pulse Ox 99% on R/A; Weight 61.23 kg lr2 (R); Height 5 ft. 0 in. (152.40 cm) (R); Pain 10/10; 11:49 BP 112 / 67 RA Sitting (auto/reg); Pulse 84; Resp 16; Temp 98.7(O); Pulse Ox 96% on jrd R/A; Pain 0/10; 10:28 Body Mass Index 26.37 (61.23 kg, 152.40 cm) lr2 Vitals: 10:28 Log In Time: October 12, 2016 at 10:26. lr2 ED Course: 10:27 Patient visited by Nkechi Portillo. lr2 10:27 Giovanny Buitrago is Private Physician. lr2 10:27 Patient moved to Waiting lr2 10:27 Patient moved to Pre RCE lr2 10:30 Triage Initiated srm 10:32 Patient moved to Triage 3 srm 10:33 Bhaskar Grover PA is PHCP. btw 10:33 Damaris Phillips MD is Attending Physician. btw 10:33 PHCP role handed off by Bhaskar Grover PA dt4 10:33 Sharee Ponce PA-C is PHCP. dt4 10:33 Patient visited by Sharee Ponce PA-C. dt4 10:43 Patient moved to I4 / M4 srm 10:43 [facility] Payment Agreement was scanned into [employer] and attached to record. lg 10:46 Patient moved to I5 / M5 jrd 11:01 Basic Metabolic Profile Sent. jmk 11:01 CBC with Diff Sent. jmk 11:01 Liver Profile Sent. jmk 11:01 Urinalysis Sent. jmk 11:01 Urine Culture Sent. jmk 11:02 The patient / caregiver is instructed regarding the plan of care and ED course. jmk 11:02 Inserted saline lock: 20 gauge in right antecubital area. jmk 11:06 Patient visited by Delio Rudolph,RN. jmk 11:37 Patient visited by Annmarie Menendez,JACQUES. jo3 11:46 CT ABD & PELVIS: No Contrast Returned. EDMS 11:50 Patient visited by Jame Easley PCA. jrd 11:51 Discontinued lock intact, bleeding controlled, pressure dressing applied, No jmk redness/swelling at site. No procedures done that require assistance. 15:26 T-Sheet-- Draft Copy was scanned into [employer] and attached to record. gb 15:26 Radiology Report was scanned into [employer] and attached to record. gb Administered Medications: 11:01 Drug: NS 0.9% 1000 ml Route: IV; Rate: bolus; Site: right antecubital; jmk 11:03 Drug: Tigan 200 mg [Tigan 100 mg/mL intramuscular solution (2 mL)] Route: IM; Site: jo3 right gluteus; 11:03 Drug: morphine 4 mg [morphine 4 mg/mL intravenous cartridge (1 mL)] Route: IVP; Site: jo3 right antecubital; 11:04 Drug: ketorolac 30 mg [ketorolac 30 mg/mL (1 mL) injection solution (1 mL)] Route: IVP; jo3 Site: right antecubital; Order Results: Lab Order: Basic Metabolic Profile; SPEC'M 10/12/16 10:52 Test: GLUCOSE, FASTING; Value: 106; Range: 70-105; Abnormal: Above high normal; Units: MG/DL; Status: F Test: BLOOD UREA NITROGEN; Value: 7; Range: 7-18; Units: MG/DL; Status: F Test: CREATININE FOR GFR; Value: 0.74; Range: 0.55-1.02; Units: MG/DL; Status: F Test: GLOMERULAR FILTRATION RATE; Value: > 60.0; Range: >58; Status: F Test: SODIUM LEVEL; Value: 138; Range: 136-145; Units: MEQ/L; Status: F Test: POTASSIUM SERUM; Value: 3.6; Range: 3.5-5.1; Units: MEQ/L; Status: F Test: CHLORIDE LEVEL; Value: 104; Range: 98-107; Units: MEQ/L; Status: F Test: CARBON DIOXIDE LEVEL; Value: 26; Range: 21-32; Units: MEQ/L; Status: F Test: ANION GAP; Value: 8; Range: 8-16; Units: MEQ/L; Status: F Test: CALCIUM LEVEL; Value: 8.6; Range: 8.5-10.1; Units: MG/DL; Status: F Test Note: ; Units are mL/min/1.73 m2 Chronic Kidney Disease Staging per NKF: Stage I & II GFR >=60 Normal to Mildly Decreased Stage III GFR 30-59 Moderately Decreased Stage IV GFR 15-29 Severely Decreased Stage V GFR <15 Very Little GFR Left ESRD GFR <15 on [employer]YSIC[employer] Lab Order: CBC with Diff; SPEC'M 10/12/16 10:52 Test: WHITE BLOOD COUNT; Value: 12.3; Range: 4.0-10.0; Abnormal: Above high normal; Units: K/mm3; Status: F Test: RED BLOOD COUNT; Value: 4.46; Range: 4.00-5.40; Units: M/mm3; Status: F Test: HEMOGLOBIN; Value: 14.1; Range: 12.0-16.0; Units: g/dl; Status: F Test: HEMATOCRIT; Value: 41.4; Range: 36.0-47.0; Units: %; Status: F Test: MEAN CORPUSCULAR VOLUME; Value: 92.6; Range: 80.0-96.0; Units: fl; Status: F Test: MEAN CORPUSCULAR HEMOGLOBIN; Value: 31.5; Range: 27.0-33.0; Units: pg; Status: F Test: MEAN CORPUSCULAR HGB CONC; Value: 34.0; Range: 32.0-36.5; Units: g/dl; Status: F Test: RED CELL DISTRIBUTION WIDTH; Value: 12.8; Range: 11.5-14.5; Units: %; Status: F Test: PLATELET COUNT, AUTOMATED; Value: 299; Range: 150-450; Units: k/mm3; Status: F Test: NEUTROPHILS %; Value: 89.0; Range: 36.0-66.0; Abnormal: Above high normal; Units: %; Status: F Test: LYMPH %; Value: 6.3; Range: 24.0-44.0; Abnormal: Below low normal; Units: %; Status: F Test: MONO %; Value: 3.6; Range: 0.0-5.0; Units: %; Status: F Test: EOS %; Value: 0.4; Range: 0.0-3.0; Units: %; Status: F Test: BASO %; Value: 0.3; Range: 0.0-1.0; Units: %; Status: F Test: LARGE UNSTAINED CELL %; Value: 0.4; Range: 0.0-4.0; Units: %; Status: F Test: NEUTROPHILS #; Value: 10.9; Range: 1.8-7.7; Abnormal: Above high normal; Units: K/mm3; Status: F Test: LYMPH #; Value: 0.8; Range: 1.5-4.5; Abnormal: Below low normal; Units: K/mm3; Status: F Test: MONO #; Value: 0.4; Range: 0.0-0.8; Units: K/mm3; Status: F Test: EOS #; Value: 0.0; Range: 0.0-0.50; Units: K/mm3; Status: F Test: BASO #; Value: 0.0; Range: 0.0-0.2; Units: K/mm3; Status: F Test: LARGE UNSTAINED CELL #; Value: 0.1; Range: 0.0-0.4; Units: K/mm3; Status: F Lab Order: Liver Profile; SPEC'M 10/12/16 10:52 Test: AST/SGOT; Value: 10; Range: 15-37; Abnormal: Below low normal; Units: U/L; Status: F Test: ALT/SGPT; Value: 15; Range: 12-78; Units: U/L; Status: F Test: ALKALINE PHOSPHATASE; Value: 82; Range: 45-117; Units: U/L; Status: F Test: BILIRUBIN,TOTAL; Value: 0.9; Range: 0.2-1.0; Units: MG/DL; Status: F Test: BILIRUBIN,DIRECT; Value: 0.2; Range: 0.0-0.2; Units: MG/DL; Status: F Test: TOTAL PROTEIN; Value: 7.8; Range: 6.4-8.2; Units: GM/DL; Status: F Test: ALBUMIN; Value: 3.6; Range: 3.2-5.2; Units: GM/DL; Status: F Test: ALBUMIN/GLOBULIN RATIO; Value: 0.86; Range: 1.00-1.93; Abnormal: Below low normal; Status: F Lab Order: Urinalysis; SPEC'M 10/12/16 10:52 Test: APPEARANCE, URINE; Value: CLOUDY; Range: CLEAR; Abnormal: Above high normal; Status: F Test: COLOR, URINE; Value: YELLOW; Range: YELLOW; Status: F Test: PH,URINE; Value: 6.0; Range: 5.0-9.0; Units: UNITS; Status: F Test: SPECIFIC GRAVITY URINE AUTO; Value: 1.011; Range: 1.002-1.035; Status: F Test: PROTEIN, URINE AUTO; Value: 1+; Range: NEGATIVE; Abnormal: Above high normal; Units: mg/dL; Status: F Test: GLUCOSE, URINE (UA) AUTO; Value: NEGATIVE; Range: NEGATIVE; Units: mg/dL; Status: F Test: KETONE, URINE AUTO; Value: NEGATIVE; Range: NEGATIVE; Units: mg/dL; Status: F Test: UROBILINOGEN, URINE AUTO; Value: 4.0; Range: 0.0-2.0; Abnormal: Above high normal; Units: mg/dL; Status: F Test: BILIRUBIN, URINE AUTO; Value: NEGATIVE; Range: NEGATIVE; Status: F Test: NITRITE, URINE AUTO; Value: POSITIVE; Range: NEGATIVE; Status: F Test: LEUKOCYTE ESTERASE, URINE AUTO; Value: 3+; Range: NEGATIVE; Abnormal: Above high normal; Status: F Test: BLOOD, URINE BLOOD; Value: 2+; Range: NEGATIVE; Abnormal: Above high normal; Status: F Test: WBC, URINE AUTO; Value: TNTC; Range: 0-3; Abnormal: Above high normal; Units: /HPF; Status: F Test: RBC, URINE AUTO; Value: 19; Range: 0-3; Abnormal: Above high normal; Units: /HPF; Status: F Test: BACTERIA, URINE AUTO; Value: 1+; Range: NEGATIVE; Abnormal: Above high normal; Status: F Test: SQUAMOUS EPITHELIAL CELL UR AU; Value: 2; Range: 0-6; Units: /HPF; Status: F Test: MUCUS, URINE; Value: SMALL; Range: NEGATIVE; Status: F Test: HYALINE CAST, URINE AUTO; Value: 0; Range: 0-1; Units: /LPF; Status: F Lab Order: Urine Culture; SPEC'M 10/12/16 10:52 Test: URINE CULTURE; Value: <EXTERNAL COMMENT eCWMed> FULL REPORT IN LAB NOTES (eCW and Medent).; Status: F Test: URINE CULTURE; Value: ORGANISM 1: ESCHERICHIA COLI; Status: F Test: URINE CULTURE; Value: ESCHERICHIA COLI; Status: F Test: URINE CULTURE; Value: COLONY COUNT CFU/ml >100,000; Status: F Test: URINE CULTURE; Value: GRAM NEG SENSI - VITEK 80; Status: F Test: URINE CULTURE; Value: Method: VIT2; Status: F Test: URINE CULTURE; Value: EXTD BRD SPCTRM BETA LACTAMASE -; Status: F Test: URINE CULTURE; Value: TRIMETHOPRIM/SULFAMETHOXAZOLE <=20 S; Status: F Test: URINE CULTURE; Value: AMPICILLIN 4 S; Status: F Test: URINE CULTURE; Value: GENTAMICIN <=1 S; Status: F Test: URINE CULTURE; Value: NITROFURANTOIN <=16 S; Status: F Test: URINE CULTURE; Value: CEFAZOLIN <=4 S; Status: F Test: URINE CULTURE; Value: LEVOFLOXACIN <=0.12 S; Status: F Test: URINE CULTURE; Value: TOBRAMYCIN <=1 S; Status: F Test: URINE CULTURE; Value: CEFTRIAXONE <=1 S; Status: F Test: URINE CULTURE; Value: CEFTAZIDIME <=1 S; Status: F Test: URINE CULTURE; Value: AMPICILLIN/SULBACTAM 4 S; Status: F Test: URINE CULTURE; Value: PIPERACILLIN/TAZOBACTAM <=4 S; Status: F Test: URINE CULTURE; Value: AZTREONAM <=1 S; Status: F Test: URINE CULTURE; Value: ERTAPENEM <=0.5 S; Status: F Test: URINE CULTURE; Value: MEROPENEM <=0.25 S; Status: F Test: URINE CULTURE; Value: TIGECYCLINE <=0.5 S; Status: F Test: URINE CULTURE; Value: CEFEPIME <=1 S; Status: F Radiology Order: CT ABD & PELVIS: No Contrast Test: CT ABD & PELVIS: No Contrast REASON FOR EXAMINATION: RIGHT FLANK PAIN; CT abdomen pelvis without IV and oral contrast:; ; There are no comparisons.; ; There is no hydronephrosis or perinephric stranding on the right on the left.; There are no renal, ureteral or bladder calculi on the right on the left.; ; The visualized lung ocasio are unremarkable.; ; The unenhanced hepatic parenchyma, gallbladder, pancreas and spleen are normal; size and unremarkable. The adrenals are unremarkable.; ; The abdominal aorta is unremarkable.; ; There is no bowel distension. Mesentery is unremarkable. There is no ascites.; ; Pelvis:; ; The uterus and adnexa are unremarkable. There is no ascites or adenopathy.; There is a phlebolith inferiorly on the left.; ; There are occasional diverticula in the sigmoid colon, however there is no CT; evidence of diverticulitis.; ; Impression:; ; There is no obstructive uropathy. There are occasional diverticula in the; sigmoid colon without diverticulitis. There is no bowel distension or; obstruction. There is no ascites. No adenopathy. Otherwise, negative CT of the; abdomen and pelvis.; ; ; Signed by; Ahmet Calderon MD 10/12/2016 11:29 A; Outcome: 11:38 Discharge ordered by Provider. dt4 11:51 Discharge Assessment: Patient awake, alert and oriented x 3. No cognitive and/or jmk functional deficits noted. Patient verbalized understanding of disposition instructions. patient administered narcotics - no. The following High Risk Discharge criteria are identified: None. Discharged to home ambulatory. Condition: good. Discharge instructions given to patient, Instructed on discharge instructions, follow up and referral plans. medication usage, Demonstrated understanding of instructions, medications, Pt was receptive of discharge instructions/ teaching. Prescriptions given X 2. CT Study completed. Property :Personal belongings accompany Pt. 11:53 Patient left the ED. shabana Signatures: Dispatcher [employer] EDMS Delio Rudolph,RN Demetra Lozano, JACQUES RN Angeles Altman, Reg Reg gb Rivas Werner, Reg Reg lg Annmarie MenendezRN RN Bhaskar Dubose PA PA btw Tschudi, Diane, PA-C PA-C dt4 Jame Easley, BILLY EXTRUDER OPERATOR MULTIPLE Nkechi Da Silva2 Chart Complete LYNDA
--- NOTE | 2016-10-14 17:36 | EDDOCDS ---
Physician Documentation [facility] Name: Alondra Hogan Age: 46 yrs Sex: Female : 1970 Arrival Date: 10/12/2016 Time: 10:26 Bed I5 / M5 Private MD: Giovanny Buitrago M. Disposition: 10/12/16 11:38 Discharged to Home/Self Care. Impression: Urinary tract infection, site not specified, Other abdominal pain - RIGHT FLANK PAIN, Nausea. - Condition is Stable. - Discharge Instructions: Nausea, Adult, Urinary Tract Infection. - Prescriptions for Tigan 300 mg Oral Capsule - take 1 capsule by ORAL route every 12 hours As needed; 20 capsule. Bactrim DS 800- 160 mg Oral Tablet - take 1 tablet by ORAL route every 12 hours for 7 days; 14 tablet. - Medication Reconciliation, Local Pharmacy Hours form. - Follow up: Emergency Department; When: As needed; Reason: Worsening of conditions. Follow up: Private Physician; When: 2 - 3 days; Reason: Wound/Symptom Recheck, Recheck today's complaints, Continuance of care. - Problem is new. - Symptoms have improved. Historical: - Allergies: Latex; - Home Meds: 1. citalopram 10 mg oral tab once daily 2. oxycodone-acetaminophen 7.5-325 mg Oral tab every 6 hours prn 3. clonidine HCl 0.2 mg Oral tab 1 tab once daily - PMHx: Bipolar disorder; Depression; - PSHx: ulnar nerve left arm; ; jaw surgery; - Social history: Smoking status: Patient uses tobacco products, current every day smoker. No barriers to communication noted, The patient speaks fluent Pashto, Speaks appropriately for age. - Family history: Not pertinent. - : The pt / caregiver states he / she is not on anticoagulants. Home medication list is obtained from the patient. - Exposure Risk Screening:: None identified. Vital Signs: 10/12 10:28 BP 111 / 74; Pulse 110; Resp 17; Temp 99.1(T); Pulse Ox 99% on R/A; Weight 61.23 kg / lr2 134.99 lbs (R); Height 5 ft. 0 in. (152.40 cm) (R); Pain 10/10; 11:49 BP 112 / 67 RA Sitting (auto/reg); Pulse 84; Resp 16; Temp 98.7(O); Pulse Ox 96% on jrd R/A; Pain 0/10; 10:28 Body Mass Index 26.37 (61.23 kg, 152.40 cm) lr2 MDM: 10:39 Financial registration complete. lg 10:43 [facility] Payment Agreement was scanned into [employer] and attached to record. lg 10:46 NS 0.9% 1000 ml IV at bolus once ordered. dt4 10:46 ketorolac 30 mg IVP once ordered. dt4 10:46 IV Saline Lock ordered. dt4 10:46 Undress patient appropriately for examination ordered. dt4 10:46 Tigan 200 mg IM once ordered. dt4 10:47 morphine 4 mg IVP once ordered. dt4 10:47 Basic Metabolic Profile Ordered. EDMS 10:47 CBC with Diff Ordered. EDMS 10:47 Liver Profile Ordered. EDMS 10:47 Urinalysis Ordered. EDMS 10:47 Urine Culture Ordered. EDMS 10:48 CT ABD & PELVIS: No Contrast Ordered. EDMS 10:48 NOTHING BY MOUTH+DIET ordered. EDMS 15:26 T-Sheet-- Draft Copy was scanned into [employer] and attached to record. gb 15:26 Radiology Report was scanned into [employer] and attached to record. gb Administered Medications: 11:01 Drug: NS 0.9% 1000 ml Route: IV; Rate: bolus; Site: right antecubital; jmk 11:03 Drug: Tigan 200 mg [Tigan 100 mg/mL intramuscular solution (2 mL)] Route: IM; Site: jo3 right gluteus; 11:03 Drug: morphine 4 mg [morphine 4 mg/mL intravenous cartridge (1 mL)] Route: IVP; Site: jo3 right antecubital; 11:04 Drug: ketorolac 30 mg [ketorolac 30 mg/mL (1 mL) injection solution (1 mL)] Route: IVP; jo3 Site: right antecubital; Signatures: Dispatcher [employer] EDMS Delio Rudolph,RN Demetra Lozano RN RN [facility] Angeles Macias, Reg Reg gb Rivas Werner, Reg Reg lg Sharee Ponce, KERRY PAVincenzo dt4 Annmarie Menendez RN jo3 The chart was reviewed and I authenticate all verbal orders and agree with the evaluation and treatment provided.Attachments: 10:43 [facility] Payment Agreement lg 15:26 T-Sheet-- Draft Copy gb Chart Complete MTDD
--- NOTE | 2016-10-14 17:36 | EDDOCDS ---
Physician Documentation [facility] Name: Alondra Hogan Age: 46 yrs Sex: Female : 1970 Arrival Date: 10/12/2016 Time: 10:26 Bed I5 / M5 Private MD: Giovanny Buitrago M. Disposition: 10/12/16 11:38 Discharged to Home/Self Care. Impression: Urinary tract infection, site not specified, Other abdominal pain - RIGHT FLANK PAIN, Nausea. - Condition is Stable. - Discharge Instructions: Nausea, Adult, Urinary Tract Infection. - Prescriptions for Tigan 300 mg Oral Capsule - take 1 capsule by ORAL route every 12 hours As needed; 20 capsule. Bactrim DS 800- 160 mg Oral Tablet - take 1 tablet by ORAL route every 12 hours for 7 days; 14 tablet. - Medication Reconciliation, Local Pharmacy Hours form. - Follow up: Emergency Department; When: As needed; Reason: Worsening of conditions. Follow up: Private Physician; When: 2 - 3 days; Reason: Wound/Symptom Recheck, Recheck today's complaints, Continuance of care. - Problem is new. - Symptoms have improved. Historical: - Allergies: Latex; - Home Meds: 1. citalopram 10 mg oral tab once daily 2. oxycodone-acetaminophen 7.5-325 mg Oral tab every 6 hours prn 3. clonidine HCl 0.2 mg Oral tab 1 tab once daily - PMHx: Bipolar disorder; Depression; - PSHx: ulnar nerve left arm; ; jaw surgery; - Social history: Smoking status: Patient uses tobacco products, current every day smoker. No barriers to communication noted, The patient speaks fluent Upper Sorbian, Speaks appropriately for age. - Family history: Not pertinent. - : The pt / caregiver states he / she is not on anticoagulants. Home medication list is obtained from the patient. - Exposure Risk Screening:: None identified. Vital Signs: 10/12 10:28 BP 111 / 74; Pulse 110; Resp 17; Temp 99.1(T); Pulse Ox 99% on R/A; Weight 61.23 kg / lr2 134.99 lbs (R); Height 5 ft. 0 in. (152.40 cm) (R); Pain 10/10; 11:49 BP 112 / 67 RA Sitting (auto/reg); Pulse 84; Resp 16; Temp 98.7(O); Pulse Ox 96% on jrd R/A; Pain 0/10; 10:28 Body Mass Index 26.37 (61.23 kg, 152.40 cm) lr2 MDM: 10:39 Financial registration complete. lg 10:43 [facility] Payment Agreement was scanned into [employer] and attached to record. lg 10:46 NS 0.9% 1000 ml IV at bolus once ordered. dt4 10:46 ketorolac 30 mg IVP once ordered. dt4 10:46 IV Saline Lock ordered. dt4 10:46 Undress patient appropriately for examination ordered. dt4 10:46 Tigan 200 mg IM once ordered. dt4 10:47 morphine 4 mg IVP once ordered. dt4 10:47 Basic Metabolic Profile Ordered. EDMS 10:47 CBC with Diff Ordered. EDMS 10:47 Liver Profile Ordered. EDMS 10:47 Urinalysis Ordered. EDMS 10:47 Urine Culture Ordered. EDMS 10:48 CT ABD & PELVIS: No Contrast Ordered. EDMS 10:48 NOTHING BY MOUTH+DIET ordered. EDMS 15:26 T-Sheet-- Draft Copy was scanned into [employer] and attached to record. gb 15:26 Radiology Report was scanned into [employer] and attached to record. gb Administered Medications: 11:01 Drug: NS 0.9% 1000 ml Route: IV; Rate: bolus; Site: right antecubital; jmk 11:03 Drug: Tigan 200 mg [Tigan 100 mg/mL intramuscular solution (2 mL)] Route: IM; Site: jo3 right gluteus; 11:03 Drug: morphine 4 mg [morphine 4 mg/mL intravenous cartridge (1 mL)] Route: IVP; Site: jo3 right antecubital; 11:04 Drug: ketorolac 30 mg [ketorolac 30 mg/mL (1 mL) injection solution (1 mL)] Route: IVP; jo3 Site: right antecubital; Signatures: Dispatcher [employer] EDMS Delio Rudolph,RN Demetra Lozano RN RN [facility] Angeles Macias, Reg Reg gb Rivas Werner, Reg Reg lg Sharee Ponce, KERRY PAVincenzo dt4 Annmarie Menendez RN jo3 The chart was reviewed and I authenticate all verbal orders and agree with the evaluation and treatment provided.Attachments: 10:43 [facility] Payment Agreement lg 15:26 T-Sheet-- Draft Copy gb Chart Complete MTDD
== END 2016-10-12 11:53 | disposition home or self-care (01) ==
LOC: M ED 10:26
DX: N39.0 Urinary tract infection, site not specified (principal); F31.9 Bipolar disorder, unspecified; Z72.0 Tobacco use; Z79.891 Long term (current) use of opiate analgesic; Z79.899 Other long term (current) drug therapy; Z91.040 Latex allergy status
CPT/HCPCS: 74176; 80048; 80076; 81001; 85025; 87088; 87186; 96372; 96374; 96375; 99284; J1885; J3250

== ENCOUNTER → 2016-10-19 | Outpatient (CLI) | payer MEDICARE ==
[~2016-10-19] MED LIST: E-Z PAQUE 60% w/v SUSP 355ML BOTTLE As Ordered ONE; E-Z-GAS II EFFERVESCENT PACKET (SODIUM BICARB./CITRIC ACID/SIMETHICONE) As Ordered ONE; E-Z-HD 98% w/w 340GM SUSP BTL As Ordered ONE
--- NOTE | 2016-10-22 07:48 | REP ---
Clinical: dysphagia. Technique: Single contrast and double contrast technique using barium sulfate substrates. Findings: Normal motility through the oropharynx and hypopharynx is appreciated without obvious mass/mass effect or contour abnormality. The esophagus demonstrates normal mucosal outline and distension without ulcerations, polyps, mass lesions, mucosal irregularities or extrinsic abnormalities. No areas of stenosis or stricture appreciated. No hiatal hernia or evidence for reflux during examination. Limited evaluation of the stomach and duodenal bulb demonstrates normal gastric rugal folds and mucosa. Total fluoroscopic time: 1:10. Impression: Normal esophagram/barium swallow study. Signed by Christopher Jonas MD 10/22/2016 07:39 A
== END ==
LOC: M RAD 08:56
PROVIDERS: ATTEND Family Medicine
DX: R13.14 Dysphagia, pharyngoesophageal phase (principal)

== ENCOUNTER → 2017-10-16 | Outpatient (REF) | payer MEDICARE | LOC: M SFHCWAGY 09:09 | DX: Z12.4 Encounter for screening for malignant neoplasm of cervix (principal) | CPT/HCPCS: G0123 ==

== ENCOUNTER → 2017-10-16 | Outpatient (CLI) | payer MEDICARE | LOC: M WHC 08:35 | DX: Z12.31 Encounter for screening mammogram for malignant neoplasm of breast (principal); R92.8 Other abnormal and inconclusive findings on diagnostic imaging of breast; R92.1 Mammographic calcification found on diagnostic imaging of breast; Z12.4 Encounter for screening for malignant neoplasm of cervix | CPT/HCPCS: 77067; G0123 ==

== ENCOUNTER → 2017-10-25 | Outpatient (CLI) | payer MEDICARE | LOC: M RAD 09:35 | DX: R92.0 Mammographic microcalcification found on diagnostic imaging of breast (principal) | CPT/HCPCS: 77065 ==

== ENCOUNTER 2017-11-20 12:18 | Outpatient (CLI) | payer MEDICARE ==
[2017-11-20] MEDS ORDERED: LIDOCAINE 1% MDV 20ML VIAL As Ordered (12:44)
[2017-11-29] MEDS ORDERED: LIDOCAINE 1% MDV 20ML VIAL As Ordered (11:37)
== END 2017-11-29 ==
LOC: M RADPRO 12:18
DX: R92.0 Mammographic microcalcification found on diagnostic imaging of breast (principal)
CPT/HCPCS: 19081

== ENCOUNTER → 2018-04-03 | Outpatient (CLI) | payer MEDICARE ==
[2018-04-03 13:52] LABS: HEMATOCRIT 39.4 % (36.0-47.0); HEMOGLOBIN 13.5 g/dl (12.0-15.5); MEAN CORPUSCULAR HEMOGLOBIN 31.3 pg (27.0-33.0); MEAN CORPUSCULAR HGB CONC 34.3 g/dl (32.0-36.5); MEAN CORPUSCULAR VOLUME 91.4 fl (80.0-96.0); PLATELET COUNT, AUTOMATED 346 10^3/uL (150-450); RED BLOOD COUNT 4.31 10^6/uL (4.00-5.40); RED CELL DISTRIBUTION WIDTH 13.5 % (11.5-14.5); WHITE BLOOD COUNT 12.9 10^3/uL (4.0-10.0)
[2018-04-03 13:53] LABS: ADD MANUAL DIFFER YES; DIFF SLIDE NUMBER 235; POSITIVE DIFF POS FLAG
[2018-04-03 14:16] LABS: ALBUMIN 3.3 GM/DL (3.2-5.2); ALKALINE PHOSPHATASE 76 U/L (45-117); ALT/SGPT 20 U/L (12-78); ANION GAP 7 MEQ/L (8-16); AST/SGOT 10 U/L (7-37); ATYPICAL LYMPH 3 % (0-5); BILIRUBIN,TOTAL 0.2 MG/DL (0.2-1.0); BLOOD UREA NITROGEN 12 MG/DL (7-18); CALCIUM LEVEL 8.6 MG/DL (8.5-10.1); CARBON DIOXIDE LEVEL 28 MEQ/L (21-32); CHLORIDE LEVEL 105 MEQ/L (98-107); CREATININE FOR GFR 0.64 MG/DL (0.55-1.30); EOSINOPHILS 1 % (0-5); GLOMERULAR FILTRATION RATE > 60.0 (>51); GLUCOSE, FASTING 87 MG/DL (70-100); LYMPHOCYTES 41 % (16-52); MONOCYTES 6 % (0-8); NEUTROPHILS 49 % (35-75); SODIUM LEVEL 140 MEQ/L (136-145); TOTAL PROTEIN 6.6 GM/DL (6.4-8.2)
[2018-04-03 14:17] LABS: ANISOCYTOSIS 1+; PLATELET ESTIMATE NORMAL (NORMAL)
== END ==
LOC: M LAB 13:15
DX: J98.8 Other specified respiratory disorders (principal); R04.2 Hemoptysis
CPT/HCPCS: 71046

== ENCOUNTER → 2018-08-06 | Outpatient (REF) | payer MEDICARE, MEDICAID ==
[2018-08-06 12:24] LABS: CHOLESTEROL LEVEL 226 MG/DL (<200); CHOLESTEROL RISK RATIO 5.512 (<5); FREE T4 0.91 NG/DL (0.76-1.46); HDL CHOLESTEROL 41 MG/DL (>40); LDL CHOLESTEROL 154 MG/DL (<100); NON-HDL-C 185 MG/DL; TRIGLYCERIDES LEVEL 155 MG/DL (<150)
== END ==
LOC: M SFHCPLAZ 09:05
DX: F41.8 Other specified anxiety disorders (principal); Z13.220 Encounter for screening for lipoid disorders; Z79.899 Other long term (current) drug therapy
CPT/HCPCS: 84443

== ENCOUNTER 2018-08-21 08:13 | Outpatient (RCR) | payer MEDICARE, MEDICAID | END 2018-09-01 | LOC: M PT 08:13 | PROVIDERS: ATTEND Physician Assistant | DX: N39.46 Mixed incontinence (principal) | CPT/HCPCS: 97161; G8978; G8979 ==

== ENCOUNTER 2018-11-28 09:24 | Day surgery (SDC) | payer MEDICARE, MEDICAID ==
[~2018-11-28] VITALS: Ht 157.5 cm; Wt 76.2 kg
[~2018-11-28 09:24] MED LIST changes: +DITR5TAB PO; -E-Z PAQUE 60% w/v SUSP 355ML BOTTLE As Ordered ONE; -E-Z-GAS II EFFERVESCENT PACKET (SODIUM BICARB./CITRIC ACID/SIMETHICONE) As Ordered ONE; -E-Z-HD 98% w/w 340GM SUSP BTL As Ordered ONE; +LIDOCAINE 2% INJ 100 MG/5 ML SDV (FOR ANES.) As Ordered ONE; +NICO14DI24 TD; +NS 1,000 ML IV ONE; +PROPOFOL 200 MG/20 ML VIAL As Ordered ONE; +SERT-141 PO
[2018-11-28] MEDS ORDERED: fentaNYL 100 MCG/2 ML INJECTION (J3010) As Ordered ONE (10:24)
[2018-11-28] MEDS ORDERED: PROPOFOL 200 MG/20 ML VIAL As Ordered ONE (11:20)
--- NOTE | 2018-11-28 11:50 | ROOR ---
Patient Name: Alondra Hemphill Procedure Date: 11/28/2018 10:50 AM Date of : 1970 Age: 48 Room: [facility] Gender: Female Note Status: Finalized Procedure: Upper GI endoscopy Indications: Dysphagia Providers: Anup Hamilton MD Referring MD: Giovanny PRITCHETT MD Requesting Provider: Medicines: Monitored Anesthesia Care Complications: No immediate complications. Procedure: Pre-Anesthesia Assessment: - Prior to the procedure, a History and Physical was performed, and patient medications and allergies were reviewed. The patient is competent. The risks and benefits of the procedure and the sedation options and risks were discussed with the patient. All questions were answered and informed consent was obtained. Patient identification and proposed procedure were verified by the physician, the nurse and the anesthesiologist in the procedure room. Mental Status Examination: alert and oriented. Airway Examination: normal oropharyngeal airway and neck mobility. Respiratory Examination: clear to auscultation. CV Examination: normal. Prophylactic Antibiotics: The patient does not require prophylactic antibiotics. Prior Anticoagulants: The patient has taken no previous anticoagulant or antiplatelet agents. ASA Grade Assessment: II - A patient with mild systemic disease. After reviewing the risks and benefits, the patient was deemed in satisfactory condition to undergo the procedure. The anesthesia plan was to use monitored anesthesia care (MAC). Immediately prior to administration of medications, the patient was re-assessed for adequacy to receive sedatives. The heart rate, respiratory rate, oxygen saturations, blood pressure, adequacy of pulmonary ventilation, and response to care were monitored throughout the procedure. The physical status of the patient was re-assessed after the procedure. The Endoscope was introduced through the mouth, and advanced to the second part of duodenum. The upper GI endoscopy was accomplished without difficulty. The patient tolerated the procedure well. Findings: No gross lesions were noted in the entire esophagus. Biopsies were obtained from the proximal and distal esophagus with cold forceps for histology of suspected eosinophilic esophagitis. Verification of patient identification for the specimen was done by the physician and nurse using the patient's name, date and medical record number. Estimated blood loss was minimal. The Z-line was regular and was found 39 cm from the incisors. Patchy mild inflammation characterized by erythema and granularity was found in the gastric body and in the gastric antrum. Biopsies were taken with a cold forceps for Helicobacter pylori testing. Patchy moderate inflammation characterized by erosions, friability and granularity was found in the duodenal bulb and in the second portion of the duodenum. Biopsies were taken with a cold forceps for histology. Impression: - No gross lesions in esophagus. Biopsied. - Z-line regular, 39 cm from the incisors. - Gastritis. Biopsied. - Duodenitis. Biopsied. Recommendation: - Patient has a contact number available for emergencies. The signs and symptoms of potential delayed complications were discussed with the patient. Return to normal activities tomorrow. Written discharge instructions were provided to the patient. - Resume previous diet. - Continue present medications. - Await pathology results. - Return to GI clinic in [facility] (address [address], [address], [place] [address]) in 4 -- 6 weeks. Please call GI clinic @ [phone] for apppointment date and time. - Return to primary care physician. Anup Hamilton MD Anup Hamilton MD 11/28/2018 11:50:21 AM Electronically signed by Anup Hamilton MD Number of Addenda: 0 Note Initiated On: 11/28/2018 10:50 AM Estimated Blood Loss: Estimated blood loss was minimal.
--- NOTE | 2018-11-28 11:55 | ROOR ---
Patient Name: Alondra Hemphill Procedure Date: 11/28/2018 10:51 AM Date of : 1970 Age: 48 Room: [facility] Gender: Female Note Status: Finalized Procedure: Colonoscopy Indications: Screening for colorectal malignant neoplasm Providers: Anup Hamilton MD Referring MD: Giovanny PRITCHETT MD Requesting Provider: Medicines: Monitored Anesthesia Care Complications: No immediate complications. Procedure: Pre-Anesthesia Assessment: - Prior to the procedure, a History and Physical was performed, and patient medications and allergies were reviewed. The patient is competent. The risks and benefits of the procedure and the sedation options and risks were discussed with the patient. All questions were answered and informed consent was obtained. Patient identification and proposed procedure were verified by the physician, the nurse and the anesthesiologist in the procedure room. Mental Status Examination: alert and oriented. Airway Examination: normal oropharyngeal airway and neck mobility. Respiratory Examination: clear to auscultation. CV Examination: normal. Prophylactic Antibiotics: The patient does not require prophylactic antibiotics. Prior Anticoagulants: The patient has taken no previous anticoagulant or antiplatelet agents. ASA Grade Assessment: II - A patient with mild systemic disease. After reviewing the risks and benefits, the patient was deemed in satisfactory condition to undergo the procedure. The anesthesia plan was to use monitored anesthesia care (MAC). Immediately prior to administration of medications, the patient was re-assessed for adequacy to receive sedatives. The heart rate, respiratory rate, oxygen saturations, blood pressure, adequacy of pulmonary ventilation, and response to care were monitored throughout the procedure. The physical status of the patient was re-assessed after the procedure. The Colonoscope was introduced through the anus and advanced to the terminal ileum, with identification of the appendiceal orifice and IC valve. The colonoscopy was performed without difficulty. The patient tolerated the procedure well. Findings: The perianal and digital rectal examinations were normal. The terminal ileum appeared normal. A 20 mm polyp was found in the cecum. The polyp was sessile. The polyp was removed with a hot snare. Resection and retrieval were complete. To close a defect after polypectomy, three hemostatic clips were successfully placed. There was no bleeding at the end of the procedure. Verification of patient identification for the specimen was done by the physician and nurse using the patient's name, date and medical record number. Estimated blood loss was minimal. A 10 mm polyp was found in the transverse colon. The polyp was sessile. The polyp was removed with a cold snare. Resection and retrieval were complete. For hemostasis, one hemostatic clip was successfully placed. There was no bleeding at the end of the procedure. Six sessile polyps were found in the recto-sigmoid colon. The polyps were 5 to 8 mm in size. These polyps were removed with a cold snare. Resection and retrieval were complete. A few small-mouthed diverticula were found in the sigmoid colon. There was no evidence of diverticular bleeding. Non-bleeding external and internal hemorrhoids were found during retroflexion. The hemorrhoids were medium-sized. Impression: - The examined portion of the ileum was normal. - One 20 mm polyp in the cecum, removed with a hot snare. Resected and retrieved. Clips were placed. - One 10 mm polyp in the transverse colon, removed with a cold snare. Resected and retrieved. Clip was placed. - Six 5 to 8 mm polyps at the recto-sigmoid colon, removed with a cold snare. Resected and retrieved. - Mild diverticulosis in the sigmoid colon. There was no evidence of diverticular bleeding. - Non-bleeding external and internal hemorrhoids. Recommendation: - Patient has a contact number available for emergencies. The signs and symptoms of potential delayed complications were discussed with the patient. Return to normal activities tomorrow. Written discharge instructions were provided to the patient. - High fiber diet. - Continue present medications. - Await pathology results. - Repeat colonoscopy in 1 year for surveillance based on pathology results. - Return to GI clinic in [facility] (address [address], [address], [place], [facility]) in 4 -- 6 weeks. Please call GI clinic @ [phone] for apppointment date and time. - Return to primary care physician. Anup Hamilton MD Anup Hamilton MD 11/28/2018 11:54:57 AM Electronically signed by Anup Hamilton MD Number of Addenda: 0 Note Initiated On: 11/28/2018 10:51 AM Estimated Blood Loss: Estimated blood loss was minimal.
[2018-11-28 12:20] VITALS: BP 137/73
== END 2018-11-28 12:30 | disposition home or self-care (01) ==
LOC: M OPP 09:24
PROVIDERS: ATTEND Internal Medicine Gastroenterology
DX: D12.0 Benign neoplasm of cecum (principal); D12.3 Benign neoplasm of transverse colon; D12.7 Benign neoplasm of rectosigmoid junction; K57.30 Diverticulosis of large intestine without perforation or abscess without bleeding; K64.8 Other hemorrhoids; Z12.11 Encounter for screening for malignant neoplasm of colon; R13.10 Dysphagia, unspecified; K29.70 Gastritis, unspecified, without bleeding; K29.80 Duodenitis without bleeding
CPT/HCPCS: 43239; 45385; 88305; J3010

== ENCOUNTER → 2018-12-22 | Outpatient (REF) | payer MEDICARE, MEDICAID ==
[~2018-12-22] MED LIST changes: -LIDOCAINE 2% INJ 100 MG/5 ML SDV (FOR ANES.) As Ordered ONE; -NS 1,000 ML IV ONE; -PROPOFOL 200 MG/20 ML VIAL As Ordered ONE
== END ==
LOC: M LAB REF 12:43
PROVIDERS: ATTEND Specialist
DX: N39.46 Mixed incontinence (principal)

== ENCOUNTER → 2019-03-12 | Day surgery (SDC) | payer MEDICARE, MEDICAID ==
[~2019-03-12] VITALS: Ht 157.5 cm; Wt 76.1 kg
[~2019-03-12] MED LIST changes: +KETOROLAC 60 MG/2 ML VIAL (J1885) As Ordered ONE; +LIDOCAINE 2% INJ 100 MG/5 ML SDV (FOR ANES.) As Ordered ONE; +LR 1,000 ML IV ONE; +LR 1,000 ML IV SCH; +MIDAZOLAM INJ 2 MG/2 ML VIAL (J2250) As Ordered ONE; +OMEP40CA2 PO; +ONDANSETRON 4MG/2ML VIAL (J2405) As Ordered ONE; +ONDANSETRON 4MG/2ML VIAL (J2405) IV PRN; +PROPOFOL 200 MG/20 ML VIAL As Ordered ONE; +ROCURONIUM BROMIDE 50 MG/5 ML VIAL As Ordered ONE; +VENL37.598 PO; +ceFAZolin 1GM INJ (J0690 PER 500MG) As Ordered ONE; +dexameTHASONE 4 MG/ML 1ML VIAL (J1100) As Ordered ONE; +fentaNYL 100 MCG/2 ML INJECTION (J3010) IV PRN; +fentaNYL 250 MCG/5 ML INJECTION (J3010) As Ordered ONE
[2019-03-12] MEDS: LIDOCAINE 1% SDV INJ 30 ML VIAL As Ordered ONE (08:50)
--- NOTE | 2019-03-12 08:54 | REP ---
Partial pelvis: Two views. History: InterStim placement. 47 seconds of fluoroscopy time is reported. Findings: A sequence of two last image hold fluoroscopically obtained spot radiographs of the sacrum document trans sacral electrode placement. Electronically Signed by Umang Ureña MD 03/12/2019 08:45 A
[2019-03-12 09:06] VITALS: BP 146/88
--- NOTE | 2019-03-12 20:44 | RO ---
DATE OF PROCEDURE: 03/12/2019 PREOPERATIVE DIAGNOSIS: Incontinence, failed conservative methods. POSTOPERATIVE DIAGNOSIS: Incontinence, failed conservative methods. PROCEDURE: InterStim stage I with permanent lead placement, temporary generator placement and programming. SURGEON: Dr. Dalia Plata CHICK GRADER: None. ANESTHESIA: Local with sedation. SPECIMEN: None. DESCRIPTION OF PROCEDURE: Alondra was brought to the operating room where she was given sedation, prepped, draped, and positioned in the usual sterile fashion prone, as is typical for these cases, and then numbing used after the normal measurements and needle placement attempted. It was a somewhat shorter than typical measurement distance to S3, so we moved down from our initial starting point and then we were able to place a needle, but it was, although reasonably medial in the foramen, not quite at the superior aspect, and we had to go over 2 to get response. So, we went ahead and placed another into the left side 3rd sacral foramen going at the superior aspect and medial aspect of that foramen and a reasonably good angle as well, as far as being parallel to sacrum foramen as we passed through. And with testing at very low amplitudes, we had both jj and toe at all four sites. So, we used this lead and went ahead and placed the stylet, backed the needle out, placed the dilator over it, got it to the right spot, backed the stylet out, went ahead and placed the curved tined lead and then tested for positioning, and having a good position, went ahead and backed the introducer out, leaving the lead in place. We did continuous fluoroscopy to confirm that we had that in the appropriate location as we backed the other out and deployed the tines. We then created a pocket on the left side in the typical fashion, irrigating with irrigation and using the cautery to create good hemostasis, and went ahead and tunneled out to where the extension could be connected and then some of the extension to the left flank. And, of course, after irrigating again, closed that pocket with a double-layered closure, as is typical. Closed the skin, the other sites with #3-0 Vicryl. Good approximation and hemostasis achieved at all three sites and then connected the generator and dressed the wounds, etc. The procedure was then ended. Estimated blood loss for the procedure was maybe 2 mL. Fluid replacement was crystalloid. Complications: None. Condition and Disposition: Alondra tolerated the procedure well and was recovering in the recovery room in good condition.
== END | disposition home or self-care (01) ==
LOC: M SDC 05:58
PROVIDERS: ATTEND Obstetrics & Gynecology
DX: R32 Unspecified urinary incontinence (principal); K21.9 Gastro-esophageal reflux disease without esophagitis; F41.9 Anxiety disorder, unspecified; F32.9 Major depressive disorder, single episode, unspecified; Z91.040 Latex allergy status; F17.210 Nicotine dependence, cigarettes, uncomplicated; Z79.899 Other long term (current) drug therapy
CPT/HCPCS: 64581; 76000; C1767; C1894; J0690; J1100; J1885; J2250; J2405; J3010

== ENCOUNTER 2019-03-19 09:40 | Day surgery (SDC) | payer MEDICARE, MEDICAID ==
[~2019-03-19] VITALS: Ht 158.8 cm; Wt 76.4 kg
[~2019-03-19 09:40] MED LIST changes: -KETOROLAC 60 MG/2 ML VIAL (J1885) As Ordered ONE; -LIDOCAINE 2% INJ 100 MG/5 ML SDV (FOR ANES.) As Ordered ONE; -LR 1,000 ML IV SCH; -MIDAZOLAM INJ 2 MG/2 ML VIAL (J2250) As Ordered ONE; -ONDANSETRON 4MG/2ML VIAL (J2405) As Ordered ONE; -ONDANSETRON 4MG/2ML VIAL (J2405) IV PRN; -PROPOFOL 200 MG/20 ML VIAL As Ordered ONE; -ROCURONIUM BROMIDE 50 MG/5 ML VIAL As Ordered ONE; -ceFAZolin 1GM INJ (J0690 PER 500MG) As Ordered ONE; -dexameTHASONE 4 MG/ML 1ML VIAL (J1100) As Ordered ONE; -fentaNYL 100 MCG/2 ML INJECTION (J3010) IV PRN; -fentaNYL 250 MCG/5 ML INJECTION (J3010) As Ordered ONE
[2019-03-19] MEDS ORDERED: PROPOFOL 200 MG/20 ML VIAL As Ordered ONE ×2 (11:12→13:21)
[2019-03-19] MEDS ORDERED: LIDOCAINE 2% INJ 100 MG/5 ML SDV (FOR ANES.) As Ordered ONE (11:12)
[2019-03-19] MEDS ORDERED: fentaNYL 100 MCG/2 ML INJECTION (J3010) As Ordered ONE (11:12)
[2019-03-19] MEDS ORDERED: MIDAZOLAM INJ 2 MG/2 ML VIAL (J2250) As Ordered ONE (11:12)
[2019-03-19] MEDS ORDERED: LIDOCAINE 1% SDV INJ 30 ML VIAL As Ordered ONE (12:32)
[2019-03-19] MEDS ORDERED: ceFAZolin 1GM INJ (J0690 PER 500MG) As Ordered ONE (12:32)
[2019-03-19 14:30] VITALS: BP 130/74
--- NOTE | 2019-03-20 23:02 | RO ---
DATE OF PROCEDURE: 03/19/2019 PREPROCEDURE DIAGNOSIS: Previous stage I InterStim with successful incontinence therapy. POSTPROCEDURE DIAGNOSIS: Previous stage I InterStim with successful incontinence therapy. PROCEDURE: Stage 2 InterStim with programming and placement of a permanent generator. SURGEON: Dr. Dalia Plata WEDDING FLORIST: ANESTHESIA: Monitored anesthesia care (MAC) and local. DESCRIPTION OF PROCEDURE: Alondra was brought to the operating room where sufficient sedation was given. She was placed prone and prepped, draped, and positioned in the usual sterile fashion. The site of the previous connector identified and numbed with 1% lidocaine without after, of course, appropriate prepping and such. And after the lidocaine had been given time to work, carefully incised over the connection to the med surg nurse, removed the previous sutures, elevated the extension, disconnected the distal connector from the lead itself, removed, of course, that lead connection carefully with a screwdriver and removed the boot, and then carefully connected the permanent generator to the lead, connecting it with the torque screwdriver in the usual fashion. A pocket was created working up from the previous connection as had been discussed with the patient preoperatively (preop) and this was carefully irrigated with antibiotic irrigation and carefully cauterized to create a dry pocket. We then placed the InterStim generator, letter side up, closed the wound most of the way so that we could then test impedance, which was tested within the operating room (OR). And after passing this testing, we closed the skin, and, of course, the rest of the wound had already been closed. We also removed the suture from the lead placed in the back. We had the skin closed with #3-0 Vicryl, the deeper layer with #2-0 Vicryl. We had good hemostasis and approximation. Dry sterile dressing was then applied. Estimated blood loss for the procedure: About 4 mL. Fluid replacement was crystalloid. Complications: None. Condition and Disposition: Alondra tolerated the procedure well and was recovering in the recovery room in good condition.
== END 2019-03-19 14:30 | disposition home or self-care (01) ==
LOC: M SDC 09:40
PROVIDERS: ATTEND Obstetrics & Gynecology
DX: N39.498 Other specified urinary incontinence (principal); K21.9 Gastro-esophageal reflux disease without esophagitis; R13.10 Dysphagia, unspecified; F41.9 Anxiety disorder, unspecified; F32.9 Major depressive disorder, single episode, unspecified; Z91.040 Latex allergy status; Z79.899 Other long term (current) drug therapy; F17.210 Nicotine dependence, cigarettes, uncomplicated
CPT/HCPCS: 64590; C1767; C1787; J0690; J2250; J3010

== ENCOUNTER → 2019-04-08 | Outpatient (CLI) | payer MEDICARE, MEDICAID ==
[~2019-04-08] MED LIST changes: -LR 1,000 ML IV ONE; -OMEP40CA2 PO; +OMEP40CA97 PO
--- NOTE | 2019-04-09 00:13 | REP ---
Examination Requested: Cookie Swallow Reason For Exam: Dysphasia The procedure was performed by QUINCY Phan, under the direct supervision of Dr. Edwards. The procedure was performed with Adalgisa Mcconnell from speech pathology present. 5 ml aliquots of thin, pudding, mixed fruit, soft food, hard food and pill consistency barium was administered. No penetration or aspiration was observed throughout the course of the exam. The detailed report of this examination will be provided by speech pathology. 1.5 minutes of fluoroscopy time was utilized for this procedure. Reviewed by QUINCY Fisher 04/08/2019 11:00 A Electronically Signed by Ahmet Edwards MD 04/09/2019 12:05 A
== END ==
LOC: M ST 09:22
PROVIDERS: ATTEND Internal Medicine Gastroenterology
DX: R13.10 Dysphagia, unspecified (principal)

== ENCOUNTER 2019-04-13 10:55 | Outpatient (RCR) | payer MEDICARE, MEDICAID ==
[~2019-04-13 10:55] MED LIST changes: +OMEP40CA2 PO; -OMEP40CA97 PO
== END 2019-05-02 ==
LOC: M ST 10:55
PROVIDERS: ATTEND Internal Medicine Gastroenterology
DX: R13.10 Dysphagia, unspecified (principal)

== ENCOUNTER 2019-05-11 09:33 | Outpatient (RCR) | payer MEDICARE, MEDICAID | END 2019-06-01 | LOC: M ST 09:33 | PROVIDERS: ATTEND Internal Medicine Gastroenterology | DX: R13.10 Dysphagia, unspecified (principal) ==

== ENCOUNTER → 2019-11-06 | Outpatient (REF) | payer MEDICARE, MEDICAID ==
[~2019-11-06] MED LIST changes: -OMEP40CA2 PO; +OMEP40CA97 PO
[2019-11-06 18:39] LABS: APPEARANCE, URINE HAZY (CLEAR); BACTERIA, URINE AUTO 2+ (NEGATIVE); BILIRUBIN, URINE AUTO NEGATIVE (NEGATIVE); BLOOD, URINE BLOOD 2+ (NEGATIVE); COLOR, URINE YELLOW (YELLOW); GLUCOSE, URINE (UA) AUTO NEGATIVE (NEGATIVE); KETONE, URINE AUTO TRACE mg/dL (NEGATIVE); LEUKOCYTE ESTERASE, URINE AUTO NEGATIVE (NEGATIVE); MUCUS, URINE SMALL (NEGATIVE); NITRITE, URINE AUTO POSITIVE (NEGATIVE); PROTEIN, URINE AUTO NEGATIVE (NEGATIVE); RBC, URINE AUTO 1 /HPF (0-3); SPECIFIC GRAVITY URINE AUTO 1.023 (1.002-1.035); SQUAMOUS EPITHELIAL CELL UR AU 3 /HPF (0-6); UROBILINOGEN, URINE AUTO 0.2 mg/dL (0.0-2.0); WBC, URINE AUTO 2 /HPF (0-3)
== END ==
LOC: M LAB REF 17:13
PROVIDERS: ATTEND Obstetrics & Gynecology
DX: N39.42 Incontinence without sensory awareness (principal); N39.41 Urge incontinence

== ENCOUNTER → 2022-01-18 | Outpatient (CLI) | payer MEDICARE, MEDICAID ==
[~2022-01-18] MED LIST changes: +AMOX500C; +IBUP-1022; +OMEP40CA4 PO; -OMEP40CA97 PO
== END ==
LOC: M LABSMTC 11:19
PROVIDERS: ATTEND Anesthesiology
DX: Z01.812 Encounter for preprocedural laboratory examination (principal); Z20.822 Contact with and (suspected) exposure to COVID-19

== ENCOUNTER 2022-01-23 11:23 | Day surgery (SDC) | payer MEDICARE, MEDICAID ==
[~2022-01-23] VITALS: Ht 157.5 cm; Wt 72.1 kg
[~2022-01-23 11:23] MED LIST changes: +NS 1,000 ML IV ONE
[2022-01-23] MEDS ORDERED: LIDOCAINE 2% 100MG/5ML SDV (FOR ANES.) As Ordered ONE (13:34)
[2022-01-23] MEDS ORDERED: fentaNYL 100 MCG/2 ML INJECTION As Ordered ONE (13:34)
[2022-01-23] MEDS ORDERED: propofoL 200 MG/20 ML VIAL As Ordered ONE (13:34)
[2022-01-23 14:21] VITALS: BP 108/62
== END 2022-01-23 14:28 | disposition home or self-care (01) ==
LOC: M OPP 11:23
PROVIDERS: ATTEND Internal Medicine Gastroenterology
DX: Z12.11 Encounter for screening for malignant neoplasm of colon (principal); Z86.010 Personal history of colon polyps; K63.5 Polyp of colon; K57.30 Diverticulosis of large intestine without perforation or abscess without bleeding; K64.8 Other hemorrhoids; K21.00 Gastro-esophageal reflux disease with esophagitis, without bleeding; K29.70 Gastritis, unspecified, without bleeding; R13.10 Dysphagia, unspecified; Z79.1 Long term (current) use of non-steroidal anti-inflammatories (NSAID); Z79.2 Long term (current) use of antibiotics; Z91.040 Latex allergy status; Z91.048 Other nonmedicinal substance allergy status; F17.210 Nicotine dependence, cigarettes, uncomplicated
CPT/HCPCS: 43239; 45380; 88305; J3010

== ENCOUNTER → 2022-03-23 | Outpatient (CLI) | payer MEDICARE, MEDICAID ==
[~2022-03-23] MED LIST changes: -NS 1,000 ML IV ONE
[2022-03-23 10:51] LABS: BASO # 0.1 10^3/uL (0.0-0.2); BASO % 0.6 % (0.0-1.0); EOS # 0.1 10^3/uL (0.0-0.5); EOS % 1.4 % (0.0-3.0); HEMOGLOBIN 14.8 g/dl (12.0-15.5); LYMPH # 3.5 10^3/uL (1.5-5.0); LYMPH % 40.2 % (24.0-44.0); MEAN CORPUSCULAR HEMOGLOBIN 30.8 pg (27.0-33.0); MEAN CORPUSCULAR HGB CONC 33.6 g/dl (32.0-36.5); MEAN CORPUSCULAR VOLUME 91.5 fl (80.0-96.0); MONO # 0.5 10^3/uL (0.0-0.8); MONO % 5.7 % (2.0-8.0); NEUTROPHILS # 4.5 10^3/uL (1.5-8.5); NEUTROPHILS % 51.9 % (36.0-66.0); PLATELET COUNT, AUTOMATED 329 10^3/uL (150-450); RED BLOOD COUNT 4.81 10^6/uL (4.00-5.40); WHITE BLOOD COUNT 8.7 10^3/uL (4.0-10.0)
== END ==
LOC: M LAB 10:18
PROVIDERS: ATTEND Internal Medicine Gastroenterology
DX: R13.10 Dysphagia, unspecified (principal)

== ENCOUNTER → 2022-05-09 | Outpatient (CLI) | payer MEDICARE, MEDICAID ==
[~2022-05-09] MED LIST changes: +ROSU5TAB5 PO; +medical marijuana
== END ==
LOC: M LABSMTC 09:08
PROVIDERS: ATTEND Anesthesiology
DX: Z01.812 Encounter for preprocedural laboratory examination (principal); Z11.52 Encounter for screening for COVID-19

== ENCOUNTER 2022-05-14 09:58 | Day surgery (SDC) | payer MEDICARE, MEDICAID ==
[~2022-05-14] VITALS: Ht 157.5 cm; Wt 72.6 kg
[~2022-05-14 09:58] MED LIST changes: +NS 1,000 ML IV ONE
[2022-05-14] MEDS ORDERED: propofoL 200 MG/20 ML VIAL As Ordered ONE ×3 (12:12→12:49)
[2022-05-14] MEDS ORDERED: LIDOCAINE 2% 100MG/5ML SDV (FOR ANES.) As Ordered ONE (12:14)
[2022-05-14] MEDS ORDERED: fentaNYL 100 MCG/2 ML INJECTION As Ordered ONE (12:14)
[2022-05-14] MEDS ORDERED: PHENYLephrine 500MCG 5ML (100MCG/ML) SYRINGE As Ordered ONE (12:45)
[2022-05-14 13:30] VITALS: BP 129/78
== END 2022-05-14 13:41 | disposition home or self-care (01) ==
LOC: M OPP 09:58
PROVIDERS: ATTEND Internal Medicine Gastroenterology
DX: K22.4 Dyskinesia of esophagus (principal); K20.90 Esophagitis, unspecified without bleeding; E78.5 Hyperlipidemia, unspecified; F32.9 Major depressive disorder, single episode, unspecified; F41.9 Anxiety disorder, unspecified; F17.200 Nicotine dependence, unspecified, uncomplicated; Z96.82 Presence of neurostimulator; Z79.02 Long term (current) use of antithrombotics/antiplatelets; Z79.899 Other long term (current) drug therapy; Z88.8 Allergy status to other drugs, medicaments and biological substances; Z91.040 Latex allergy status
CPT/HCPCS: 43239; 43249; 88305; J2370; J3010

== ENCOUNTER → 2022-07-03 | Outpatient (CLI) | payer MEDICARE, MEDICAID ==
[~2022-07-03] MED LIST changes: +E-Z-GAS II EFFERVESCENT PACKET (SODIUM BICARB./CITRIC ACID/SIMETHICONE) As Ordered ONE; +E-Z-HD 98% w/w 340GM SUSP BTL As Ordered ONE; +E-Z-PAQUE 96% w/w SUSP 176GM BTL As Ordered ONE; -NS 1,000 ML IV ONE
== END ==
LOC: M RAD 08:47
PROVIDERS: ATTEND Internal Medicine Gastroenterology
DX: R13.10 Dysphagia, unspecified (principal)

== ENCOUNTER → 2022-11-01 | Outpatient (CLI) | payer MEDICARE, MEDICAID ==
[~2022-11-01] MED LIST changes: -E-Z-GAS II EFFERVESCENT PACKET (SODIUM BICARB./CITRIC ACID/SIMETHICONE) As Ordered ONE; -E-Z-HD 98% w/w 340GM SUSP BTL As Ordered ONE; -E-Z-PAQUE 96% w/w SUSP 176GM BTL As Ordered ONE
== END ==
LOC: M RAD 07:54
PROVIDERS: ATTEND Internal Medicine Gastroenterology
DX: R14.0 Abdominal distension (gaseous) (principal)

== ENCOUNTER → 2023-01-02 | Outpatient (CLI) | payer MEDICARE, MEDICAID ==
[2023-01-02 08:50] LABS: ALKALINE PHOSPHATASE 95 U/L (46-116); ALT/SGPT 44 U/L (7.0-40); AST/SGOT 29 U/L (<34); BILIRUBIN,DIRECT 0.1 MG/DL (<0.4); BILIRUBIN,TOTAL 0.5 MG/DL (0.3-1.2); BLOOD UREA NITROGEN 15 MG/DL (9-23); CREATININE FOR GFR 0.72 MG/DL (0.55-1.30); GLOMERULAR FILTRATION RATE > 60.0 (>51)
[2023-01-02 09:05] LABS: HEPATITIS B SURFACE ANTIGEN NEGATIVE (NEGATIVE)
[2023-01-05 02:08] LABS: HEPATITIS A IgG TOTAL Negative (Negative)
== END ==
LOC: M LAB 07:32
PROVIDERS: ATTEND Internal Medicine Gastroenterology
DX: R93.89 Abnormal findings on diagnostic imaging of other specified body structures (principal)

== ENCOUNTER → 2023-01-02 | Outpatient (CLI) | payer MEDICARE, MEDICAID ==
[2023-01-02 08:36] LABS: BASO # 0.1 10^3/uL (0.0-0.2); BASO % 0.7 % (0.0-1.0); EOS # 0.1 10^3/uL (0.0-0.5); EOS % 1.4 % (0.0-3.0); HEMATOCRIT 47.2 % (36.0-47.0); LYMPH # 3.3 10^3/uL (1.5-5.0); LYMPH % 31.8 % (24.0-44.0); MEAN CORPUSCULAR HEMOGLOBIN 30.7 pg (27.0-33.0); MEAN CORPUSCULAR HGB CONC 33.9 g/dl (32.0-36.5); MEAN CORPUSCULAR VOLUME 90.6 fl (80.0-96.0); MONO # 0.6 10^3/uL (0.0-0.8); MONO % 5.6 % (2.0-8.0); NEUTROPHILS # 6.2 10^3/uL (1.5-8.5); NEUTROPHILS % 60.2 % (36.0-66.0); PLATELET COUNT, AUTOMATED 331 10^3/uL (150-450); RED BLOOD COUNT 5.21 10^6/uL (4.00-5.40); WHITE BLOOD COUNT 10.3 10^3/uL (4.0-10.0)
[2023-01-02 08:37] LABS: APPEARANCE, URINE HAZY (CLEAR); BACTERIA, URINE AUTO 3+ (NEGATIVE); BILIRUBIN, URINE AUTO NEGATIVE (NEGATIVE); BLOOD, URINE BLOOD NEGATIVE (NEGATIVE); COLOR, URINE YELLOW (YELLOW); GLUCOSE, URINE (UA) AUTO NEGATIVE (NEGATIVE); KETONE, URINE AUTO TRACE mg/dL (NEGATIVE); LEUKOCYTE ESTERASE, URINE AUTO TRACE (NEGATIVE); MUCUS, URINE SMALL (NEGATIVE); NITRITE, URINE AUTO POSITIVE (NEGATIVE); PROTEIN, URINE AUTO NEGATIVE (NEGATIVE); RBC, URINE AUTO 7 /HPF (0-3); SPECIFIC GRAVITY URINE AUTO 1.024 (1.002-1.035); SQUAMOUS EPITHELIAL CELL UR AU 1 /HPF (0-6); WBC, URINE AUTO 2 /HPF (0-3)
[2023-01-02 08:49] LABS: BLOOD UREA NITROGEN 15 MG/DL (9-23); CALCIUM LEVEL 9.1 MG/DL (8.5-10.1); CARBON DIOXIDE LEVEL 30 MMOL/L (20-31); CHLORIDE LEVEL 106 MMOL/L (98-107); CREATININE FOR GFR 0.73 MG/DL (0.55-1.30); GLOMERULAR FILTRATION RATE > 60.0 (>51); GLUCOSE, FASTING 90 MG/DL (60-100); POTASSIUM SERUM 4.5 MMOL/L (3.5-5.1); SODIUM LEVEL 141 MMOL/L (136-145)
== END ==
LOC: M LAB 07:34
PROVIDERS: ATTEND Urology
DX: N39.41 Urge incontinence (principal)

== ENCOUNTER → 2023-01-16 | Outpatient (CLI) | payer MEDICARE, MEDICAID ==
[~2023-01-16] MED LIST changes: +ISOVUE-370 76% 100ML VIAL As Ordered ONE
== END ==
LOC: M RAD 12:28
PROVIDERS: ATTEND Internal Medicine Gastroenterology
DX: K76.9 Liver disease, unspecified (principal); R93.89 Abnormal findings on diagnostic imaging of other specified body structures
CPT/HCPCS: 74160; Q9967

== ENCOUNTER → 2024-01-07 | Outpatient (CLI) | payer MEDICAID, MEDICARE ==
[~2024-01-07] MED LIST changes: +GASTROGRAFIN SOLUTION 30ML ONE; -ISOVUE-370 76% 100ML VIAL As Ordered ONE; +ISOVUE-370 76% 100ML VIAL ONE; +ROSU5TAB40 PO; -ROSU5TAB5 PO
== END ==
LOC: M PLAIMG 09:28
PROVIDERS: ATTEND Internal Medicine Gastroenterology
DX: D37.6 Neoplasm of uncertain behavior of liver, gallbladder and bile ducts (principal); D41.4 Neoplasm of uncertain behavior of bladder
CPT/HCPCS: 74178; Q9963; Q9967